=== PATIENT | male | born 1965 | race Caucasian/White ===

== ENCOUNTER 2020-04-23 17:19 | Inpatient (IN) ==
[2020-04-23] MEDS ORDERED: OPTIRAY 320 125ml IV PRN (17:21)
[2020-04-23] MEDS ORDERED: THIAMINE HCL 200 MG in SODIUM CHLORIDE 0.9% 50 ML IV STA (17:26)
[2020-04-23] MEDS ORDERED: LABETALOL HCL IV 5 MG/ML 20ML IV STA (17:36)
--- NOTE | 2020-04-23 17:36 | CT Scan Report ---
HEAD CT NONCONTRAST CT DOSE: 1631.81 mGy.cm HISTORY: Stroke symptoms. Stroke evaluation TECHNIQUE: Multiaxial CT images of the head were performed without the use of intravenous contrast. A utomated exposure control was utilized for this study. A dose lowering technique was utilized adheri ng to the principles of ALARA. Comparison: Head CT 03/16/2020. Findings: Decrease in size in the maxillary sinus retention cysts. The mastoid air cells are clear. T he calvarium and skull base are intact. There is no mass, midline shift, acute infarct. The left thal amic hemorrhage has essentially resolved in the interval. There is a focal hypodensity at this locati on measuring 3 cm likely representing expected evolution of the subacute to chronic infarct. No new a reas of intracranial hemorrhage identified. Impression: 1. No acute infarct. 2. The left thalamic hemorrhage has essentially resolved in the interval. Focal hypodensity at this l ocation is consistent with expected evolution of the subacute to chronic infarct. ACT 112: Negative or not required by law. Electronically signed by: Tacos Garnica M.D. 04/23/2020 5:34 PM
--- NOTE | 2020-04-23 17:46 | CT Scan Report ---
HEAD & NECK CTA HISTORY: Stroke symptoms. Stroke evaluation TECHNIQUE: Multiaxial CT images of the head were performed following the intravenous administration o f contrast to evaluate the major cerebral vessels. Multiaxial CT images of the neck were also perform ed following the intravenous administration of contrast to evaluate the major cervical vessels. Maxim um intensity projection images were also obtained. A dose lowering technique was utilized adhering to the principles of ALARA. COMPARISON: Head CT 03/16/2020. FINDINGS: Visualized intracranial internal carotid arteries, distal vertebral arteries, and basilar artery are widely patent. There is no significant stenosis, occlusion, or aneurysm seen within the bilateral RADHA s, MCAs, or pediatric oncology nurse. The major dural venous sinuses are widely patent. The aortic arch and proximal great vessels are widely patent. There is no significant stenosis, occ lusion, or dissection identified within the bilateral common carotid, internal carotid, or vertebral arteries. IMPRESSION: 1. No significant stenosis, occlusion, or aneurysm within the [place]. 2. No significant stenosis, occlusion, or dissection identified within the carotid or vertebral arter ies. ACT 112: Negative or not required by law. Electronically signed by: Tacos Garnica M.D. 04/23/2020 5:45 PM
--- NOTE | 2020-04-23 17:46 | CT Scan Report ---
HEAD & NECK CTA HISTORY: Stroke symptoms. Stroke evaluation TECHNIQUE: Multiaxial CT images of the head were performed following the intravenous administration o f contrast to evaluate the major cerebral vessels. Multiaxial CT images of the neck were also perform ed following the intravenous administration of contrast to evaluate the major cervical vessels. Maxim um intensity projection images were also obtained. A dose lowering technique was utilized adhering to the principles of ALARA. COMPARISON: Head CT 03/16/2020. FINDINGS: Visualized intracranial internal carotid arteries, distal vertebral arteries, and basilar artery are widely patent. There is no significant stenosis, occlusion, or aneurysm seen within the bilateral RADHA s, MCAs, or windows desktop support. The major dural venous sinuses are widely patent. The aortic arch and proximal great vessels are widely patent. There is no significant stenosis, occ lusion, or dissection identified within the bilateral common carotid, internal carotid, or vertebral arteries. IMPRESSION: 1. No significant stenosis, occlusion, or aneurysm within the [place]. 2. No significant stenosis, occlusion, or dissection identified within the carotid or vertebral arter ies. ACT 112: Negative or not required by law. Electronically signed by: Tacos Garnica M.D. 04/23/2020 5:45 PM
--- NOTE | 2020-04-23 17:52 | Emergency Department Note ---
Impression & Plan TIA (transient ischemic attack), Aphasia, Heart murmur ED Provider Note NAME: GERSON GUZMAN AGE: 54 SEX: M : 1965 ARRIVES VIA: Ambulance INFORMANT: Patient, ED PROVIDER(S): Aayush Gomez DO CHIEF COMPLAINT: Right-sided weakness HPI: The patient is a 54-year-old male who presented to the emergency department by ambulance for a possible stroke alert. The patient has a history of a recent hemorrhagic CVA. The patient presented to our emergency department initially on March 19 and was diagnosed with a hemorrhagic left-sided CVA. He was transferred to [facility]. He was at [facility] for inpatient rehab until yesterday. The patient went home yesterday and was feeling well. His last known well time was at 1530 today when he went to lie down for a nap. His found him this evening having significant difficulty using his right arm as well as slurred speech and inappropriate words. The patient has a history of alcoholism in the past. But he is not had any alcohol recently. He states that when he was at [facility] he was also diagnosed with hypertension and was started on medications for hypertension. He states that he has been compliant with his outpatient medication regimen. The patient denies having any headaches. He is had no recent falls. He denies having any nausea or vomiting. He denies having any chest pain or difficulty breathing at this time. He states his symptoms are significantly improved. ROS: See above HPI for pertinent positives & negatives. A total of 10 systems reviewed and were otherwise negative. PAST MEDICAL HISTORY: See Below PAST SURGICAL HISTORY: See Below FAMILY HISTORY: See Below SOCIAL HISTORY: See Below HOME MEDICATIONS: See Below ALLERGIES: See Below VITALS: See Below PHYSICAL EXAMINATION: GENERAL: The patient is awake and alert. He is somewhat anxious appearing but overall comfortable. EYES: The conjunctivae are clear. The pupils are round and reactive. EARS, NOSE, MOUTH AND THROAT: The nose is without any evidence of any deformity. Mucous membranes are moist. NECK: The neck is nontender and supple. RESPIRATORY: Normal respiratory effort is noted there is no evidence of wheezing rhonchi or rales CARDIOVASCULAR: Regular rate and rhythm was noted to auscultation. There is a systolic murmur appreciated. GASTROINTESTINAL: The abdomen is soft. Abdomen is nontender. MUSCULOSKELETAL/EXTREMITIES: There is no evidence of gross deformity full range of motion is noted in the hips and shoulders. SKIN: There is no obvious evidence of any rash. Trace pedal edema was noted bilaterally. NEUROLOGIC: The patient is awake and alert. He is oriented to person place and situation. He does have some word finding difficulty. Words are appropriate at this time. He does have a slight right facial droop involving the right corner of the mouth. Extraocular muscles are intact. 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 He is diminished with the right hand mail truck driver greater than the left. Patient is able to hold each leg off of the bed for greater than 5 seconds. MEDICAL DECISION MAKING: The patient is a 54-year-old male who presented to the emergency department for an evaluation of possible stroke. The patient had a last known well time of 1530 when he laid down to take a nap. When he awoke he was having difficulty speaking. The patient has a history of a recent hemorrhagic CVA at the end of February. He was discharged from inpatient rehab yesterday. The patient was significantly improved when he arrived at the emergency department. His significant other presented to the emergency department to be with him and states that he is at his baseline at this time. I discussed the patient's laboratory and radiographic studies with him. I also discussed this case with the on-call [facility] hospitalist group. They have agreed to evaluate the patient in the emergency department for further management and disposition. He was treated with IV antihypertensive in the emergency department. Triage Nursing notes reviewed. Prior medical records reviewed Vital Signs: reviewed and remarkable for elevated blood pressure. Differential diagnosis: Infection, dehydration, metabolic abnormality, hypo/hyperglycemia, electrolyte disturbance, anemia, hypoxia, cardiac sources, intracerebral event, toxicologic, neurologic, as well as other pathologies. ER treatment provided: See below Diagnostics interpreted by me: ECG: EKG was obtained in the emergency department. My interpretation is normal sinus rhythm at 78 bpm. There was high lateral ST depressions noted. No PVCs were noted. This was compared to a tracing from March 16, 2020. No significant changes were noted. Cardiac Monitoring: An order was placed for continuous cardiac monitoring. The monitor shows a rate of 88 with sinus rhythm. Laboratory studies: As stated above and show below. 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: No Beliefs That Will Affect Care: None Current Living Situation: Spouse Feels Safe at Home: Yes Safety Concerns: Feels Safe At This Time Smoking Status: Never smoker Hx Alcohol Use: Yes Alcohol type: beer Hx Substance Use: No Allergies Allergies Allergy/AdvReac Type Severity Reaction Status Date / Time No Known Allergies Allergy Verified 04/23/20 18:12 Home Meds Home Medications Medication Instructions Recorded Confirmed amlodipine 10 mg PO DAILY 04/23/20 04/23/20 atorvastatin 40 mg PO DAILY 04/23/20 04/23/20 carvedilol 25 mg PO DAILY 04/23/20 04/23/20 folic acid 1 mg PO DAILY 04/23/20 04/23/20 loratadine 10 mg PO DAILY 04/23/20 04/23/20 thiamine HCl (vitamin B1) 100 mg PO DAILY 04/23/20 04/23/20 Results & Data (ED) Vital Signs Vital Signs - 24 hr 04/23/20 17:24 04/23/20 17:34 04/23/20 17:47 Temperature 36.8 C Temperature Source Oral Pulse Rate 83 82 82 Pulse Rate [Apical] Pulse Rate from SpO2 Sensor 83 83 Pulse Rhythm Regular Pulse Strength Normal Respiratory Rate 20 Respiratory Effort / Characteristics Non-Labored Spontaneous Respiratory Depth Normal Respiratory Pattern Regular Blood Pressure 215/111 H 215/111 H Blood Pressure [Right Arm] Blood Pressure Mean 145 168 Blood Pressure Mean [Right Arm] Pulse Oximetry 96 96 95 Oxygen Delivery Method Room Air Sepsis Recent Fever Within 48 Hours No Sepsis Action Taken by Nursing No Action Required 04/23/20 17:57 04/23/20 18:00 04/23/20 18:01 Temperature Temperature Source Pulse Rate 77 76 75 Pulse Rate [Apical] Pulse Rate from SpO2 Sensor 78 75 75 Pulse Rhythm Pulse Strength Respiratory Rate Respiratory Effort / Characteristics Respiratory Depth Respiratory Pattern Blood Pressure 185/87 H 161/84 H Blood Pressure [Right Arm] Blood Pressure Mean 103 90 Blood Pressure Mean [Right Arm] Pulse Oximetry 97 96 96 Oxygen Delivery Method Sepsis Recent Fever Within 48 Hours Sepsis Action Taken by Nursing 04/23/20 18:15 04/23/20 18:19 04/23/20 18:30 Temperature Temperature Source Pulse Rate 78 77 Pulse Rate [Apical] Pulse Rate from SpO2 Sensor 77 76 Pulse Rhythm Pulse Strength Respiratory Rate Respiratory Effort / Characteristics Respiratory Depth Respiratory Pattern Blood Pressure 152/76 H Blood Pressure [Right Arm] Blood Pressure Mean 95 Blood Pressure Mean [Right Arm] Pulse Oximetry 95 96 Oxygen Delivery Method Room Air Room Air Room Air Sepsis Recent Fever Within 48 Hours Sepsis Action Taken by Nursing 04/23/20 18:31 04/23/20 18:46 04/23/20 20:32 Temperature Temperature Source Pulse Rate 75 73 Pulse Rate [Apical] 78 Pulse Rate from SpO2 Sensor 75 73 Pulse Rhythm Pulse Strength Respiratory Rate 18 Respiratory Effort / Characteristics Non-Labored Respiratory Depth Normal Respiratory Pattern Blood Pressure 180/83 H 169/84 H Blood Pressure [Right Arm] 156/76 H Blood Pressure Mean 103 119 Blood Pressure Mean [Right Arm] 102 Pulse Oximetry 97 97 98 Oxygen Delivery Method Room Air Room Air Room Air Sepsis Recent Fever Within 48 Hours Sepsis Action Taken by Prison Medications Current Medication List: was personally reviewed by me Laboratory Data Attestation: I reviewed the patient's lab results. Result diagrams: 04/23/20 17:41 04/23/20 17:41 Lab Results 04/23/20 04/23/20 04/23/20 Range/Units 17:41 17:41 17:41 WBC 6.92 (4.8-10.8) K/uL RBC 4.39 L (4.7-6.1) M/uL Hgb 14.6 (14.0-18.0) g/dL Hct 41.6 L (42-52) % MCV 94.8 (80-100) fL MCH 33.3 (25-34) pg MCHC 35.1 (32-36) g/dL RDW Std Deviation 42.8 (36.4-46.3) fL RDW Coeff of Harjinder 12.4 (11.5-14.5) % Plt Count 155 (130-400) K/uL MPV 11.7 H (7.4-10.4) fL Immature Gran % (Auto) 0.1 % Neut % (Auto) 50.8 % Lymph % (Auto) 36.0 % [place] % (Auto) 9.5 % Eos % (Auto) 2.9 % Baso % (Auto) 0.7 % Neut # (Auto) 3.51 (1.4-6.5) K/uL Lymph # (Auto) 2.49 (1.2-3.4) K/uL [place] # (Auto) 0.66 H (0.11-0.59) K/uL Eos # (Auto) 0.20 (0-0.5) K/uL Baso # (Auto) 0.05 (0-0.2) K/uL Immature Gran # (Auto) 0.01 (0.00-0.02) K/uL PT 12.2 H (9.0-12.0) Seconds INR 1.2 H (0.9-1.1) APTT 33.2 H (21.0-31.0) Seconds PTT Ratio 1.2 Sodium (136-145) mmol/L Potassium (3.5-5.1) mmol/L Chloride (98-107) mmol/L Carbon Dioxide (21-32) mmol/L Anion Gap (3-11) BUN (7-18) mg/dl Creatinine (0.6-1.4) mg/dl Est Cr Clr Drug Dosing ml/min Est GFR ( Amer) Est GFR (Non-Af Amer) BUN/Creatinine Ratio (10-20) Glucose (70-99) mg/dl Calcium (8.5-10.1) mg/dl Magnesium (1.8-2.4) mg/dl Total Bilirubin (0.2-1) mg/dl AST (15-37) U/L ALT (12-78) U/L Alkaline Phosphatase (45-117) U/L Troponin I (0-0.045) ng/ml Total Protein (6.4-8.2) gm/dl Albumin (3.4-5.0) gm/dl Globulin (2.5-4.0) gm/dl Albumin/Globulin Ratio (0.9-2) Prolactin ng/ml Ethyl Alcohol mg/dL (0-3) mg/dl Blood Type B Positive Antibody Screen NEGATIVE 04/23/20 04/23/20 04/23/20 Range/Units 17:41 17:41 17:41 WBC (4.8-10.8) K/uL RBC (4.7-6.1) M/uL Hgb (14.0-18.0) g/dL Hct (42-52) % MCV (80-100) fL MCH (25-34) pg MCHC (32-36) g/dL RDW Std Deviation (36.4-46.3) fL RDW Coeff of Harjinder (11.5-14.5) % Plt Count (130-400) K/uL MPV (7.4-10.4) fL Immature Gran % (Auto) % Neut % (Auto) % Lymph % (Auto) % [place] % (Auto) % Eos % (Auto) % Baso % (Auto) % Neut # (Auto) (1.4-6.5) K/uL Lymph # (Auto) (1.2-3.4) K/uL [place] # (Auto) (0.11-0.59) K/uL Eos # (Auto) (0-0.5) K/uL Baso # (Auto) (0-0.2) K/uL Immature Gran # (Auto) (0.00-0.02) K/uL PT (9.0-12.0) Seconds INR (0.9-1.1) APTT (21.0-31.0) Seconds PTT Ratio Sodium 136 (136-145) mmol/L Potassium 4.0 (3.5-5.1) mmol/L Chloride 102 (98-107) mmol/L Carbon Dioxide 26 (21-32) mmol/L Anion Gap 8.0 (3-11) BUN 13 (7-18) mg/dl Creatinine 1.06 (0.6-1.4) mg/dl Est Cr Clr Drug Dosing 114.8 ml/min Est GFR ( Amer) 92.4 Est GFR (Non-Af Amer) 79.7 BUN/Creatinine Ratio 12.0 (10-20) Glucose 94 (70-99) mg/dl Calcium 9.0 (8.5-10.1) mg/dl Magnesium 2.1 (1.8-2.4) mg/dl Total Bilirubin 0.5 (0.2-1) mg/dl AST 25 (15-37) U/L ALT 49 (12-78) U/L Alkaline Phosphatase 98 (45-117) U/L Troponin I < 0.015 (0-0.045) ng/ml Total Protein 8.0 (6.4-8.2) gm/dl Albumin 3.5 (3.4-5.0) gm/dl Globulin 4.5 H (2.5-4.0) gm/dl Albumin/Globulin Ratio 0.8 L (0.9-2) Prolactin 8.20 ng/ml Ethyl Alcohol mg/dL < 3.0 (0-3) mg/dl Blood Type Antibody Screen Administered Medications Ioversol (Optiray 320 125ml) 119 ml IV ONCE PRN PRN Reason: Interaction Checking Stop: 04/27/20 17:20 Last Admin: 04/23/20 17:22 Dose: 119 ml Documented by: [id number] Discontinued Medications Thiamine HCl 200 mg/ Sodium (Chloride) 52 mls @ 208 mls/hr IV NOW STA Stop: 04/23/20 17:40 Last Infusion: 04/23/20 18:17 Dose: 0 mls/hr Documented by: [id number] Admin: 04/23/20 17:54 Dose: 208 mls/hr Documented by: [id number] Labetalol HCl (Normodyne) 10 mg IV NOW STA Stop: 04/23/20 17:37 Last Admin: 04/23/20 17:49 Dose: 10 mg Documented by: [id number] Cosigned by: [id number] Imaging Data Radiologist's Impression: HEAD CT NONCONTRAST CT DOSE: 1631.81 mGy.cm HISTORY: Stroke symptoms. Stroke evaluation TECHNIQUE: Multiaxial CT images of the head were performed without the use of intravenous contrast. Automated exposure control was utilized for this study. A dose lowering technique was utilized adhering to the principles of ALARA. Comparison: Head CT 03/16/2020. Findings: Decrease in size in the maxillary sinus retention cysts. The mastoid air cells are clear. The calvarium and skull base are intact. There is no mass, midline shift, acute infarct. The left thalamic hemorrhage has essentially resolved in the interval. There is a focal hypodensity at this location measuring 3 cm likely representing expected evolution of the subacute to chronic infarct. No new areas of intracranial hemorrhage identified. Impression: 1. No acute infarct. 2. The left thalamic hemorrhage has essentially resolved in the interval. Focal hypodensity at this location is consistent with expected evolution of the subacute to chronic infarct. ACT 112: Negative or not required by law. Electronically signed by: Tacos Garnica M.D. 04/23/2020 5:34 PM Dictated: 04/23/201730 Transcribed: 04/23/201730 HEAD & NECK CTA HISTORY: Stroke symptoms. Stroke evaluation TECHNIQUE: Multiaxial CT images of the head were performed following the intravenous administration of contrast to evaluate the major cerebral vessels. Multiaxial CT images of the neck were also performed following the intravenous administration of contrast to evaluate the major cervical vessels. Maximum intensity projection images were also obtained. A dose lowering technique was utilized adhering to the principles of ALARA. COMPARISON: Head CT 03/16/2020. FINDINGS: Visualized intracranial internal carotid arteries, distal vertebral arteries, and basilar artery are widely patent. There is no significant stenosis, occlusion, or aneurysm seen within the bilateral ACAs, MCAs, or speech pathology assistant. The major dural venous sinuses are widely patent. The aortic arch and proximal great vessels are widely patent. There is no significant stenosis, occlusion, or dissection identified within the bilateral common carotid, internal carotid, or vertebral arteries. IMPRESSION: 1. No significant stenosis, occlusion, or aneurysm within the [place]. 2. No significant stenosis, occlusion, or dissection identified within the carotid or vertebral arteries. ACT 112: Negative or not required by law. Electronically signed by: Tacos Garnica M.D. 04/23/2020 5:45 PM Dictated: 04/23/201734 Transcribed: 04/23/201734 XR chest 1V portable HISTORY: Stroke symptoms. COMPARISON: Chest 03/16/2020. FINDINGS: There are low lung volumes. No pleural effusions. No pneumothorax. The heart remains mildly enlarged. The lungs are clear. No evidence for pulmonary edema. Mildly tortuous thoracic aorta. IMPRESSION: Stable mild cardiomegaly. ACT 112: Negative or not required by law. Electronically signed by: Tacos Garnica M.D. 04/23/2020 7:12 PM Dictated: 04/23/201910 Transcribed: 04/23/201910 Blood Pressure Blood Pressure Findings: Elevated blood pressure Blood Pressure Disposition: further management by hospitalist Discharge Plan Visit Data *Final* Discharge Date/Time: 04/23/20 21:31 Chief Complaint: Stroke Alert Stated Complaint: STROKE ALERT ED Provider: Jason,Aayush R Discharge Problem: TIA (transient ischemic attack), Aphasia, Heart murmur Patient Disposition: Admitted As Inpatient Condition: Good Discharge Instructions Interventions: ED Discharge Assessment Last Done: 04/23/20 21:31
[2020-04-23 17:59] LABS: Basophils # (auto) 0.05 K/uL (0-0.2); Basophils % (auto) 0.7 %; Eosinophils % (auto) 2.9 %; Hematocrit (blood only) 41.6 % (42-52); Hemoglobin 14.6 g/dL (14.0-18.0); Immature Granulocytes # (auto) 0.01 K/uL (0.00-0.02); Immature Granulocytes % (auto) 0.1 %; Lymphocytes # (auto) 2.49 K/uL (1.2-3.4); Mean Corpuscular Hemoglobin 33.3 pg (25-34); Mean Corpuscular Hgb Conc 35.1 g/dL (32-36); Mean Corpuscular Volume 94.8 fL (80-100); Mean Platelet Volume 11.7 fL (7.4-10.4); Monocytes # (auto) 0.66 K/uL (0.11-0.59); Monocytes % (auto) 9.5 %; Neutrophils # (auto) 3.51 K/uL (1.4-6.5); Neutrophils % (auto) 50.8 %; Platelet Count 155 K/uL (130-400); RDW Coefficient of Variation 12.4 % (11.5-14.5); RDW Standard Deviation 42.8 fL (36.4-46.3); Red Blood Count 4.39 M/uL (4.7-6.1); White Blood Count 6.92 K/uL (4.8-10.8)
[2020-04-23 18:09] LABS: INR 1.2 (0.9-1.1); Partial Thromboplastin Ratio 1.2; Partial Thromboplastin Time 33.2 Seconds (21.0-31.0); Prothrombin Time 12.2 Seconds (9.0-12.0)
[2020-04-23 18:37] LABS: Alanine Aminotransferase 49 U/L (12-78); Albumin Level 3.5 gm/dl (3.4-5.0); Aspartate Aminotransferase 25 U/L (15-37); Blood Urea Nitrogen 13 mg/dl (7-18); Carbon Dioxide 26 mmol/L (21-32); Chloride 102 mmol/L (98-107); Creatinine Clr Calc Pharmacy 114.8 ml/min; Est GFR (African American) 92.4; Est GFR (Non-African American) 79.7; Glucose 94 mg/dl (70-99); Magnesium 2.1 mg/dl (1.8-2.4); Sodium 136 mmol/L (136-145)
[2020-04-23 18:41] LABS: Albumin Globulin Ratio 0.8 (0.9-2); Alkaline Phosphatase 98 U/L (45-117); Bilirubin,Total 0.5 mg/dl (0.2-1); Globulin 4.5 gm/dl (2.5-4.0); Troponin I < 0.015 ng/ml (0-0.045)
--- NOTE | 2020-04-23 19:13 | XRay Report ---
XR chest 1V portable HISTORY: Stroke symptoms. COMPARISON: Chest 03/16/2020. FINDINGS: There are low lung volumes. No pleural effusions. No pneumothorax. The heart remains mildly enlarged. The lungs are clear. No evidence for pulmonary edema. Mildly tortuous thoracic aorta. IMPRESSION: Stable mild cardiomegaly. ACT 112: Negative or not required by law. Electronically signed by: Tacos Garnica M.D. 04/23/2020 7:12 PM
--- NOTE | 2020-04-23 21:42 | History & Physical Report ---
Date of Service April 23, 2020 Assessment & Plan (1) TIA (transient ischemic attack): 54 yo M with PMH L Hemorrhagic CVA 5 weeks ago, presenting to ED today with symptoms of TIA. 1) TIA - CTA Head and negative for stenosis, occlusion or aneurysm - Given first stroke 5 weeks ago, patient is still high risk for repeat stroke within 3 months of initial event - most likely TIA given resolution within ~1 hour of symptom onset without intervention - MRI brain wo con ordered - Neuro consult; may benefit from addition of aspirin therapy - BP 215/111 on arrival to ED; reduced significantly to 145/70 after 10 mg IV labetalol in ED. - holding carvedilol 25 mg BID until pressures stabilize with goal of no more than 15% decrease over 24 hours (182/94), can add back if systolic >220 or diastolic >120 [pt had one dose of carvedilol AM of 04/23, did not receive evening dose] 2) Hx Hemorrhagic Stroke - continuing home 40 mg Atorvastatin - Amlodipine 10 mg held - will request records from [facility] from last stroke admission. A1c and lipid panel unlikely to have changed much in 5 weeks; follow up outpatient. - If cardiac echo not performed at [facility] at last admit, will repeat here given murmur on exam. 3) Hx Alcoholism - continue home daily folic acid and thiamine supplementation DVT ppx: SCDs FEN/GI: heart healthy diet, low sodium diet Code Status: Full Code Dispo: (2) Aphasia: (3) Heart murmur: History of Present Illness 54-year-old male with a past medical history significant for hemorrhagic left- sided CVA 5 weeks ago at [facility]. He presented to the emergency department via ambulance earlier this afternoon after noticing trouble speaking and slurred speech. Last known well time was 3:30 PM prior to him laying down for a nap he woke up at 430 and he and his noticed he was having trouble saying the appropriate words and had slight slurring of speech. She called the ambulance and was brought to the emergency department. Patient says that he felt like his speech was improving by the time he got into the ambulance it was almost entirely back to baseline by the time he got to the hospital was seen by the physician. Denies any chest pain, shortness of breath, nausea, vomiting during this entire episode. He states he does have some numbness and tingling in the right side of his body that is remnant from the previous stroke but does not note any changes in that today. Pain well [facility] where he was able to take all of the new medications he had been placed on after his previous stroke. Is any changes in vision blurring of vision headaches weakness or instability episode. Not currently on any blood thinners and taking his medications as prescribed. History significant for NH, stroke, hypertension, and diabetes in mother, father, and sister. No history of surgeries or allergies to medications. Primary Care Provider: NO PCP Allergies Allergy/AdvReac Type Severity Reaction Status Date / Time No Known Allergies Allergy Verified 04/23/20 18:12 Home Medications Home Medications Medication Instructions Recorded Confirmed Type amlodipine 10 mg PO DAILY 04/23/20 04/23/20 History atorvastatin 40 mg PO DAILY 04/23/20 04/23/20 History carvedilol 25 mg PO DAILY 04/23/20 04/23/20 History folic acid 1 mg PO DAILY 04/23/20 04/23/20 History loratadine 10 mg PO DAILY 04/23/20 04/23/20 History thiamine HCl (vitamin B1) 100 mg PO DAILY 04/23/20 04/23/20 History Past Med/Surg History Medical History Hemorrhagic cerebrovascular accident (CVA) Hypertension Family History (Updated 04/23/20 @ 22:06 by Fatemeh Abernathy MD) Father Myocardial infarction Mother Myocardial infarction Sister Hypertension Myocardial infarction Stroke Diabetes Social History Preferred Language: Setswana Communication Ability: Effective 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 Beliefs That Will Affect Care: None Current Living Situation: Spouse Feels Safe at Home: Yes Safety Concerns: Feels Safe At This Time Smoking Status: Never smoker Hx Alcohol Use: Yes Alcohol type: beer Hx Substance Use: No Review of Systems Constitutional: no fever, no chills, no body aches and no fatigue Respiratory: no cough and no dyspnea Cardiovascular: no chest pain, no dyspnea and no edema Gastrointestinal: no abdominal pain, no nausea, no vomiting, no constipation and no diarrhea/loose stools Neurologic: + tingling, + numbness and + abnormal speech; no unsteadiness, no falls, no localized weakness, no lack of coordination, no tremor(s), no seizure- like activity, no dizziness and no headache(s) Physical Exam Physical Exam: Constitutional: obese, in no apparent distress, sitting comfortably in bed. HENT: no facial droop Eyes: EOMI, pupils equal and reactive bilaterally, no scleral icterus Cardiac: RRR, 3/6 systolic ejection murmur heard best at apex, no gallops or rubs. Normal S1, S2 Pulm: CTA BL, no wheezes, rhonchi, crackles or rubs, moving air well throughout both lungs Abd: soft, nontender, nondistended, normal bowel sounds, no rebound or guarding, bruising across lower abdomen from SQ heparin Extremities: 2+ peripheral pulses, no edema Neuro: no focal deficits, moving all 4 limbs, A&Ox3, strength 5/5 at ankles bilaterally. Able to extend and flex lower extremity against resistance bilaterally. Flexion of upper extremities against resistance equal and strong, extension of right extremity weaker than left against resistance. Results & Data Results & Data ([facility]) Vital Signs (Past 12 Hours) Vital Signs Temp Pulse Pulse Resp BP BP Pulse Ox 04/23/20 21:31 84 18 145/79 H 98 04/23/20 20:32 78 18 156/76 H 98 04/23/20 18:46 73 169/84 H 97 04/23/20 18:31 75 180/83 H 97 04/23/20 18:30 77 96 04/23/20 18:19 78 152/76 H 95 04/23/20 18:01 75 161/84 H 96 04/23/20 18:00 76 96 04/23/20 17:57 77 185/87 H 97 04/23/20 17:47 82 95 04/23/20 17:34 82 215/111 H 96 04/23/20 17:24 36.8 C 83 20 215/111 H 96 Vital Signs Temp Pulse Resp BP Pulse Ox 36.8 C 83 20 215/111 H 96 04/23/20 17:24 04/23/20 17:24 04/23/20 17:24 04/23/20 17:24 04/23/20 17:24 Laboratory Results WBC 6.92 K/uL (4.8-10.8) 04/23/20 17:41 RBC 4.39 M/uL (4.7-6.1) L 04/23/20 17:41 Hgb 14.6 g/dL (14.0-18.0) 04/23/20 17:41 Hct 41.6 % (42-52) L 04/23/20 17:41 MCV 94.8 fL (80-100) 04/23/20 17:41 MCH 33.3 pg (25-34) 04/23/20 17:41 MCHC 35.1 g/dL (32-36) 04/23/20 17:41 RDW Std Deviation 42.8 fL (36.4-46.3) 04/23/20 17:41 RDW Coeff of Harjinder 12.4 % (11.5-14.5) 04/23/20 17:41 Plt Count 155 K/uL (130-400) 04/23/20 17:41 MPV 11.7 fL (7.4-10.4) H 04/23/20 17:41 Immature Gran % (Auto) 0.1 % 04/23/20 17:41 Neut % (Auto) 50.8 % 04/23/20 17:41 Lymph % (Auto) 36.0 % 04/23/20 17:41 Emmons % (Auto) 9.5 % 04/23/20 17:41 Eos % (Auto) 2.9 % 04/23/20 17:41 Baso % (Auto) 0.7 % 04/23/20 17:41 Neut # (Auto) 3.51 K/uL (1.4-6.5) 04/23/20 17:41 Lymph # (Auto) 2.49 K/uL (1.2-3.4) 04/23/20 17:41 Emmons # (Auto) 0.66 K/uL (0.11-0.59) H 04/23/20 17:41 Eos # (Auto) 0.20 K/uL (0-0.5) 04/23/20 17:41 Baso # (Auto) 0.05 K/uL (0-0.2) 04/23/20 17:41 Immature Gran # (Auto) 0.01 K/uL (0.00-0.02) 04/23/20 17:41 PT 12.2 Seconds (9.0-12.0) H 04/23/20 17:41 INR 1.2 (0.9-1.1) H 04/23/20 17:41 APTT 33.2 Seconds (21.0-31.0) H 04/23/20 17:41 PTT Ratio 1.2 04/23/20 17:41 Sodium 136 mmol/L (136-145) 04/23/20 17:41 Potassium 4.0 mmol/L (3.5-5.1) 04/23/20 17:41 Chloride 102 mmol/L (98-107) 04/23/20 17:41 Carbon Dioxide 26 mmol/L (21-32) 04/23/20 17:41 Anion Gap 8.0 (3-11) 04/23/20 17:41 BUN 13 mg/dl (7-18) 04/23/20 17:41 Creatinine 1.06 mg/dl (0.6-1.4) 04/23/20 17:41 Est Cr Clr Drug Dosing 114.8 ml/min 04/23/20 17:41 Est GFR ( Amer) 92.4 04/23/20 17:41 Est GFR (Non-Af Amer) 79.7 04/23/20 17:41 BUN/Creatinine Ratio 12.0 (10-20) 04/23/20 17:41 Glucose 94 mg/dl (70-99) 04/23/20 17:41 Calcium 9.0 mg/dl (8.5-10.1) 04/23/20 17:41 Magnesium 2.1 mg/dl (1.8-2.4) 04/23/20 17:41 Total Bilirubin 0.5 mg/dl (0.2-1) 04/23/20 17:41 AST 25 U/L (15-37) 04/23/20 17:41 ALT 49 U/L (12-78) 04/23/20 17:41 Alkaline Phosphatase 98 U/L (45-117) 04/23/20 17:41 Troponin I < 0.015 ng/ml (0-0.045) 04/23/20 17:41 Total Protein 8.0 gm/dl (6.4-8.2) 04/23/20 17:41 Albumin 3.5 gm/dl (3.4-5.0) 06/28/20 17:41 Globulin 4.5 gm/dl (2.5-4.0) H 04/23/20 17:41 Albumin/Globulin Ratio 0.8 (0.9-2) L 04/23/20 17:41 Prolactin 8.20 ng/ml 04/23/20 17:41 Ethyl Alcohol mg/dL < 3.0 mg/dl (0-3) 04/23/20 17:41 Blood Type B Positive 04/23/20 17:41 Antibody Screen NEGATIVE 04/23/20 17:41 Supervising Physician Co-Signing Physician Notes Patient seen and examined, chart reviewed, case discussed with Dr. Abernathy and I agree with her assessment and plan as documented above. Briefly, patient is a 54yo C male with history of newly diagnosed HTN, thalamic hemorrhagic CVA 5 weeks ago for which he was seen at [facility] and subsequently transferred to [facility]. Patient returns today with brief episode of aphasia noted today around 16:30 - states that he knew what he wanted to say but was unable to say the correct words. reports nonsensical words. Otherwise, patient denies CHOUDHARY/visual changes/worsening of numbness/tingling or weakness. Of note, he still has some residual deficit of the right side from his prior CVA - numbness, mild weakness subjective. He states that his aphasia improved en route to the hospital. He currently feels completely back to baseline. His feels that he is back to normal as well. On arrival to the ER he was hypertensive, administered IV Labetalol with improvement Skin -intact, no rash, extensive bruising on anterior lower abdomen HEENT - NC/AT, PERRL, MMM, Neck supple Heart - +S1/S2, regular, 3/6 TIARA across precordium Lungs - CTA Abd - +BS, soft, NT/ND Ext - No edema Neuro - diminished sensation RUE Labs and images reviewed. CT head with resolution of thalamic hemorrhage, CTA unremarkable Assessment/Plan - Dysarthria most likely secondary to TIA vs CVA -Admit to medical floor -Obtain MRI -Obtain records from [place] - if no record of AIC, lipids or echo will obtain these during this hospital stay -Neurology consultation per protocol appreciated -Initiate ASA 81mg po daily -Continue high dose statin -Remainder of plan as above Resident Activity Tracking Resident Involvement: Resident Care Provided Care Provided: Adult [facility]
[2020-04-23] MEDS ORDERED: ALUMINUM/MAGNESIUM SUSP 30 ML UDC PO PRN (22:05)
[2020-04-23] MEDS ORDERED: PHARMACIST DISCHARGE MED REC CONSULT PRN (22:05)
[2020-04-23] MEDS ORDERED: MAGNESIUM HYDROXIDE SUSP 30 ML UDC PO PRN (22:05)
[2020-04-23] MEDS ORDERED: POLYETHYLENE (MIRALAX) 17 GM PACK PO PRN (22:05)
[2020-04-23] MEDS ORDERED: NITROGLYCERIN SL 0.4 MG/TAB TAB SL PRN (22:05)
[2020-04-23] MEDS ORDERED: ONDANSETRON INJ 2 MG/ML 2 ML VIAL IV PRN (22:05)
[2020-04-23] MEDS ORDERED: ACETAMINOPHEN 325 MG TAB PO PRN (22:05)
--- NOTE | 2020-04-23 23:22 | Billing Data ---
Date of Service April 23, 2020 Coding Level of Care Code 41543 OBS Care - Level 2
[2020-04-24 07:22] LABS: BUN Creatinine Ratio 12.2 (10-20); Calcium 9.2 mg/dl (8.5-10.1); Creatinine Clr Calc Pharmacy 121.7 ml/min; Est GFR (African American) 109.7; Est GFR (Non-African American) 94.6; Potassium 4.3 mmol/L (3.5-5.1)
--- NOTE | 2020-04-24 07:55 | Magnetic Resonance Report ---
MRI OF THE BRAIN WITHOUT CONTRAST CLINICAL HISTORY: stroke/TIA symptoms COMPARISON STUDY: Head CT and CTA of the head April 23, 2020. TECHNIQUE: Utilizing a 1.5 Gay magnet and dedicated coil, multiplanar, multiecho imaging of the bra in was performed without IV contrast. FINDINGS: There is no evidence for acute infarction. Note is made of a 3.1 cm T1 and T2 hyperintense focus with T2 hypointense rim within the left thalamus and posterior limb of the left internal capsul e which represents expected evolution of the hematoma shown on head CT of March 16, 2020. This is now s ubacute to chronic. No additional sites of hemorrhage are present. Ventricular system is unremarkable . The basilar cisterns are patent. There are no extra axial collections. Flow-voids for the major int racranial vessels are present. IMPRESSION: 1. No evidence for acute infarct. 2. Expected evolution of the subacute to chronic hematoma within the left thalamus and posterior limb of the left internal capsule since head CT of March 16, 2020. ACT 112: Negative or not required by law. Electronically signed by: Marcio Lopez M.D. 04/24/2020 7:53 AM
[2020-04-24] MEDS: FOLIC ACID 1 MG TAB PO SCH (08:41)
[2020-04-24] MEDS: ATORVASTATIN 40 MG TAB PO SCH (08:41)
[2020-04-24] MEDS: THIAMINE HCL 100 MG TAB PO SCH (08:41)
[2020-04-24] MEDS: ASPIRIN 81 MG ECTAB PO SCH (08:41)
[2020-04-24] MEDS: LORATADINE 10 MG TAB PO SCH (08:41)
[2020-04-24] MEDS ORDERED: AMLODIPINE BESYLATE 5 MG TAB PO SCH (09:00)
--- NOTE | 2020-04-24 09:21 | Electrocardiogram Report ---
Test Reason : Blood Pressure : / mmHG Vent. Rate : 078 BPM Atrial Rate : 078 BPM P-R Int : 208 ms QRS Dur : 090 ms QT Int : 400 ms P-R-T Axes : 032 035 079 degrees QTc Int : 456 ms Normal sinus rhythm Normal ECG When compared with ECG of 16-MAR-2020 06:10, ST depression in Lateral leads no longer present Confirmed by Marty Starr ([id number]) on 04/24/2020 9:20:56 AM Referred By: REFERRED SELF Confirmed By:Marty Starr
--- NOTE | 2020-04-24 09:39 | Neurology Consultation ---
Date of Consultation April 24, 2020 Assessment & Plan (1) TIA (transient ischemic attack): TIA occurring in the context of hypertensive urgency and recent hemorrhagic left thalamic infarct. No acute or progressive process on recent imaging. No significant vascular lesions on CT angiography of the head and neck. Episode probably triggered by hypertension and possibly impaired cerebrovascular autoregulation in context of recent hemorrhagic infarct occurring last month. Again, no acute process identified. Patient is clinically stable this morning and appears to be back to his baseline with continued mild weakness of the right hand related to his previous hemorrhagic stroke. I agree with the addition of daily low-dose aspirin to this patient's medication regimen. Continue with atorvastatin. Continue management of hypertension. He will likely need to restart antihypertensive therapy to avoid abnormal spikes in blood pressure that could be a factor. Again, his blood pressure was markedly elevated at the time of this most recent hospitalization and had been significantly elevated when he had presented with his left thalamic hemorrhage last month. No further immediate recommendations from a neurological perspective. History of Present Illness Reason for Consultation: TIA Requesting Physician: Katheirn Abrenathy MD Attending Physician: Mo Stephenson History of Present Illness The patient is a 54-year-old male who presented to the emergency department yesterday with a chief complaint of slurred speech and using inappropriate words with associated weakness of the right arm. Symptoms were noted by his spouse. He has a history of a left thalamic hypertensive hemorrhage occurring last month, on March 16, 2020, characterized by aphasia and right hemiparesis for which he was evaluated at [facility] and transferred to [facility] at that time. He had been at [facility] for 3 weeks and was discharged to home yesterday, prior to his current acute presentation. The patient symptoms had nearly resolved or return to baseline by the time he was admitted yesterday. He continues to have mild weakness of the right hand which she remarks is chronic and related to his hemorrhagic stroke. He does report that his weakness is markedly improved from his initial presentation in February. He denies headache, vertigo, or vision disturbance. He was notably hypertensive with a blood pressure of 215/111 at the time of his most recent presentation. His blood pressure this morning is markedly improved. Allergies Allergy/AdvReac Type Severity Reaction Status Date / Time No Known Allergies Allergy Verified 04/23/20 18:12 Home Medications Home Medications Medication Instructions Recorded Confirmed Type amlodipine 10 mg PO DAILY 04/23/20 04/23/20 History atorvastatin 40 mg PO DAILY 04/23/20 04/23/20 History carvedilol 25 mg PO DAILY 04/23/20 04/23/20 History folic acid 1 mg PO DAILY 04/23/20 04/23/20 History loratadine 10 mg PO DAILY 04/23/20 04/23/20 History thiamine HCl (vitamin B1) 100 mg PO DAILY 04/23/20 04/23/20 History Patient History Medical History Hemorrhagic cerebrovascular accident (CVA) Hypertension Family History Father Myocardial infarction Mother Myocardial infarction Sister Hypertension Myocardial infarction Stroke Diabetes Social History Preferred Language: Divehi Communication Ability: Effective Director Of Institutional Research Required: No Beliefs That Will Affect Care: None Current Living Situation: Spouse Feels Safe at Home: Yes Safety Concerns: Feels Safe At This Time Smoking Status: Never smoker Hx Alcohol Use: Yes Alcohol type: beer Hx Substance Use: No Review of Systems Constitutional: no fever and no chills Eyes: no blind spots and no diplopia Ear, Nose, Mouth, Throat: no tinnitus and no hearing loss Respiratory: no cough and no dyspnea Cardiovascular: no chest pain and no palpitations Gastrointestinal: no nausea and no vomiting Genitourinary: no dysuria and no urinary incontinence Musculoskeletal: no neck pain and no myalgia Integumentary: no rash and no lesions Neurologic: as per Subjective / HPI, + localized weakness and + abnormal speech; no headache(s), no confusion and no memory loss Psychiatric: no depression and no anxiety Hematologic / Lymphatic: no easy bleeding and no easy bruising Exam (Neuro) Constitutional: well developed and well nourished; no acute distress Eyes: normal visual benítez by confrontation, PERRL, normal accommodation and EOM intact bilaterally; no fundoscopic abnormality, no nystagmus and no papilledema Cardiovascular: Vessels: normal carotid upstroke; no carotid bruit Neurologic: Oriented to:: Person, Place and Time Memory: Short Term Intact and Remote Intact Attention: Span Intact and Concentration Intact Language: Naming Objects and Repeating Phrases Speech Fluency: negative Dysarthria Speech Aphasia: negative Aphasia Fund of Knowledge: Current Events, Past History and Vocabulary Cranial Nerves: Normal II (Visual benítez full to confrontation, visual acuity normal), III, IV, (Pupils equal round reactive to light and accommodation, eye movements normal), V (Facial sensation intact), VII (There is no facial droop or weakness), VIII (Hearing intact), IX, X (Palate elevates to midline), XI (Shoulder shrug intact) and XII (Tongue protrudes to midline) Motor Strength: Normal Lower Extremities and Pronator Drift Laterality: Right; negative Normal Upper Extremities (Mild weakness for the right upper extremity, 4 out of 5 with impairment of facility of fine finger movements and fix with arm roll on the right.) Motor Tone: Normal Lower Extremities and Normal Upper Extremities Muscle Bulk/Involuntary Movements: No Involuntary Movements; negative Muscle Atrophy Sensation: Light Touch Intact, Pain/Temperature Intact, Vibration Intact and Proprioception Intact Coordination: Normal, Finger-Nose Abnormal (Moderate dysmetria with [id number] on the right) and Heel-Pérez Abnormal (Very mild dysmetria with [id number] on the right); negative Limited Balance and Dysdiadochokinesia Deep Tendon Reflexes: Rt Triceps: 2+, Lt Triceps: 2+, Rt Biceps: 3+, Lt Biceps: 2+, Rt Brachioradialis: 3+, Lt Brachioradialis: 2+, Rt Patellar: 3+, Lt Patellar: 2+, Rt Ankle: 2+ and Lt Ankle: 2+ Special Tests: Babinski Present (Right plantar response upgoing) Gait: Hemiparetic (Very mild right hemiparetic gait pattern) Results & Data ([facility]) Vital Signs (Past 12 Hours) Vital Signs Temp Pulse Pulse Resp BP BP BP 04/24/20 07:20 36.6 C 69 19 132/64 04/24/20 03:22 36.3 C L 68 18 119/68 04/23/20 22:16 36.5 C 74 18 174/70 H 04/23/20 22:05 04/23/20 21:31 84 18 145/79 H Pulse Ox Pulse Ox 04/24/20 07:20 97 04/24/20 03:22 98 04/23/20 22:16 97 04/23/20 22:05 97 04/23/20 21:31 98 Laboratory Results WBC 6.92, hemoglobin 14.6, hematocrit 41.6, platelet count 155, sodium 141, potassium 4.3, BUN 11, creatinine 0.92, glucose [address] of the head completed yesterday revealed resolution of the previously identified left thalamic hemorrhage. No hydrocephalus. No acute process. A CT angiogram of the head and neck was negative for stenosis, occlusion, aneurysm, or dissection. An MRI of the brain was negative for acute infarct. There is normal evolutionary change of the previously identified 3 cm left thalamic hematoma. No new sites of hemorrhage. I reviewed the images as well as the radiologist's interpretation of these tests. An electrocardiogram completed yesterday reveals a normal sinus rhythm, 78 bpm. Coding Level of Care Code 18563 Inpt Consult Level 5 Diagnoses TIA (transient ischemic attack) G45.9
[2020-04-24] MEDS ORDERED: carvediloL 12.5 MG TAB PO STA (15:10)
[2020-04-24] MEDS ORDERED: AMLODIPINE BESYLATE 5 MG TAB PO STA (15:10)
--- NOTE | 2020-04-24 21:37 | Hospitalist Progress Note ---
Date of Service April 24, 2020 Assessment & Plan (1) TIA (transient ischemic attack): 54 yo M with PMH L Hemorrhagic CVA 5 weeks ago, presenting to ED today with symptoms of TIA. 1) TIA - CTA Head and negative for stenosis, occlusion or aneurysm - Given first stroke 5 weeks ago, patient is still high risk for repeat stroke within 3 months of initial event - most likely TIA given resolution within ~1 hour of symptom onset without intervention - MRI brain wo con ordered showed: No evidence for acute infarct. Expected evolution of the subacute to chronic hematoma within the left thalamus and posterior limb of the left internal capsule since head CT of March 16, 2020. - Appreciate Neuro input; may benefit from addition of aspirin therapy 2) Hx Hemorrhagic Stroke - continuing home 40 mg Atorvastatin -will resume amoldipine and coreg.- -WILL VERIFY IF PATIENT IS TAKING THIS MEDICATION -it appears patient is having workup for secondary hypertension at [facility] - will request records from [facility] from last stroke admission. A1c and lipid panel unlikely to have changed much in 5 weeks; follow up outpatient. 3) Hx Alcoholism - continue home daily folic acid and thiamine supplementation DVT ppx: SCDs FEN/GI: heart healthy diet, low sodium diet Code Status: Full Code Dispo: (2) Aphasia: (3) Heart murmur: (2) Aphasia: (3) Heart murmur: Admission and Anticipated Discharge Date Admission Date: April 24, 2020 Subjective Patient reports feeling well. He has no new complaints today. Review of Systems Review of Systems: All systems reviewed & are unremarkable except as noted in HPI & below Physical Exam Physical Exam: Constitutional: obese, in no apparent distress, sitting comfortably in bed. HENT: no facial droop Eyes: EOMI, pupils equal and reactive bilaterally, no scleral icterus Cardiac: RRR, 3/6 systolic ejection murmur heard best at apex, no gallops or rubs. Normal S1, S2 Pulm: CTA BL, no wheezes, rhonchi, crackles or rubs, moving air well throughout both lungs Abd: soft, nontender, nondistended, normal bowel sounds, no rebound or guarding, bruising across lower abdomen from SQ heparin Extremities: 2+ peripheral pulses, no edema Neuro: no focal deficits, moving all 4 limbs, A&Ox3, strength 5/5 at ankles bilaterally. Able to extend and flex lower extremity against resistance bilaterally. Flexion of upper extremities against resistance equal and strong, extension of right extremity 4+/5 Results & Data Results & Data ([facility]) Vital Signs (Past 12 Hours) Vital Signs Temp Pulse Resp BP Pulse Ox 04/24/20 19:34 36.5 C 78 20 160/71 H 97 04/24/20 15:45 36.5 C 78 18 138/74 94 PG Care Time/CCT Total # of Minutes Spent Total Time Spent with Patient: Total time spent is greater than 50% in coordination of care (as documented) at patient's floor/unit and/or counseling patient: Coding Level of Care Code 75910 Subseq Hosp Care Lvl 3 Diagnoses TIA (transient ischemic attack) G45.9 Aphasia R47.01 Heart murmur R01.1 Time Spent (min) 35
[2020-04-25 06:39] LABS: BUN Creatinine Ratio 15.9 (10-20); Calcium 8.9 mg/dl (8.5-10.1); Creatinine Clr Calc Pharmacy 134.9 ml/min; Est GFR (African American) 116.4; Est GFR (Non-African American) 100.5; Potassium 4.1 mmol/L (3.5-5.1)
[2020-04-25] MEDS: ASPIRIN 81 MG ECTAB PO SCH (08:27)
[2020-04-25] MEDS: FOLIC ACID 1 MG TAB PO SCH (08:27)
[2020-04-25] MEDS: ATORVASTATIN 40 MG TAB PO SCH (08:27)
[2020-04-25] MEDS: LORATADINE 10 MG TAB PO SCH (08:27)
[2020-04-25] MEDS: THIAMINE HCL 100 MG TAB PO SCH (08:27)
[2020-04-25] MEDS ORDERED: carvediloL 25 MG TAB PO SCH (09:30)
--- NOTE | 2020-04-25 10:07 | Discharge Summary ---
Date of Service April 25, 2020 Principal Diagnosis Transient ischemic attack Discharge Exam Constitutional: obese, in no apparent distress, sitting comfortably in bed. HENT: no facial droop Eyes: EOMI, pupils equal and reactive bilaterally, no scleral icterus Cardiac: RRR, 3/6 systolic ejection murmur heard best at apex, no gallops or rubs. Normal S1, S2 Pulm: CTA BL, no wheezes, rhonchi, crackles or rubs, moving air well throughout both lungs Abd: soft, nontender, nondistended, normal bowel sounds, no rebound or guarding, bruising across lower abdomen from SQ heparin Extremities: 2+ peripheral pulses, no edema Neuro: no focal deficits, moving all 4 limbs, A&Ox3, strength 5/5 at ankles bilaterally. Able to extend and flex lower extremity against resistance bilaterally. Flexion of upper extremities against resistance equal and strong, extension of right extremity 4+/5 Discharge Data Allergies Allergy/AdvReac Type Severity Reaction Status Date / Time No Known Allergies Allergy Verified 04/23/20 18:12 Consultations 04/23/20 18:50 ED Decision to Admit Stat 04/23/20 22:05 Consult Case Management - Discharge Planning Routine Consult Neurology Routine 04/25/20 09:33 Burn CD for patient Stat Ordered Studies 04/23/20 17:15 CT angio head w con Stat CT head/brain wo con Stat 04/23/20 17:26 CT angio neck with con Stat 04/23/20 22:05 MR brain wo con Urgent Hospital Course (1) TIA (transient ischemic attack): 54 yo M with PMH L Hemorrhagic CVA 5 weeks ago, presenting to ED today with symptoms of TIA. 1) TIA - CTA Head and negative for stenosis, occlusion or aneurysm -Strength is back to baseline. - Given first stroke 5 weeks ago, patient is still high risk for repeat stroke within 3 months of initial event - most likely TIA given resolution within ~1 hour of symptom onset without intervention - MRI brain wo con ordered showed: No evidence for acute infarct. Expected evolution of the subacute to chronic hematoma within the left thalamus and posterior limb of the left internal capsule since head CT of March 16, 2020. - Appreciate Neuro input (in bold); may benefit from addition of aspirin therapy TIA occurring in the context of hypertensive urgency and recent hemorrhagic left thalamic infarct. No acute or progressive process on recent imaging. No significant vascular lesions on CT angiography of the head and neck. Episode probably triggered by hypertension and possibly impaired cerebrovascular autoregulation in context of recent hemorrhagic infarct occurring last month. Again, no acute process identified. Patient is clinically stable this morning and appears to be back to his baseline with continued mild weakness of the right hand related to his previous hemorrhagic stroke. I agree with the addition of daily low-dose aspirin to this patient's medication regimen. Continue with atorvastatin. Continue management of hypertension. Patient remained well the following day. 2) Hx Hemorrhagic Stroke - continuing home 40 mg Atorvastatin -will resume amoldipine and coreg.- -it appears patient is having workup for secondary hypertension at [facility] - will defer further workup at [facility] 3) Hx Alcoholism - continue home daily folic acid and thiamine supplementation DVT ppx: SCDs FEN/GI: heart healthy diet, low sodium diet Code Status: Full Code Dispo: (2) Aphasia: (3) Heart murmur: (2) Aphasia: (3) Heart murmur: Total Time Total Time Spent Total Time Spent (In Minutes): 32 Total Time Includes: Examination of the Patient, Discharge Planning and Medication Reconciliation Discharge Plan Discharge Items Patient Disposition: Home - Self-Care Reason For Visit: APHASIA, STROKE Discharge Diagnosis: TIA Condition on Discharge: Good Activity: Resume your previous activity Non-emergency contact: Primary Care Provider Call non-emergency contact if: you have any medication questions Follow-up/Referrals: PCP,NO [Primary Care Provider] - Diet: Heart Healthy and Low Sodium (2gm) Addtl Attending Provider Instructions: Risk Factors for Stroke: You can reduce your chances of stroke by working with your medical provider to adopt a healthy lifestyle. Some specific ways to lower your chance of stroke are: * If you are a smoker, now is the time to stop smoking cigarettes * If you are diabetic, improve the control of your blood sugars * Avoid excessive amounts of alcohol * Control high blood pressure * Lose weight if you are overweight * Be sure to lead an active lifestyle * Eat a healthy diet low in salt, cholesterol and fat You should know about other risk factors for stroke that you are unable to control. These include: * Age 55 years or older * Male gender * Certain racial groups: , or / * Family History of Stroke, Mini stroke or Heart Attack * Sickle Cell Disease Follow Up: It is important for you to keep your follow up appointments with your medical provider. Who to Call and When: Medical Emergencies: Call 911 immediately if you experience any of the following warning signs and symptoms of Stroke: * Sudden numbness or weakness of the face, arm or leg, especially on one side of the body * Sudden confusion, trouble speaking or understanding * Sudden trouble seeing in one or both eyes * Sudden trouble walking, dizziness, loss of balance or coordination * Sudden severe headache with no cause Do not delay calling 911 if you experience any warning signs or symptoms of a stroke. Delay in seeking medical attention may affect what treatments can be given to you. . Pending Studies at Discharge: No Stand-Alone Forms: Medications to Prevent Stroke, [facility], Smoking Cessation Medications and DC Order Prescriptions: New aspirin 81 mg Tablet,Delayed Release (Dr/Ec) 81 mg PO DAILY Qty: 30 RF: 0 Continued atorvastatin 40 mg tablet 40 mg PO DAILY RF: 0 thiamine HCl (vitamin B1) 100 mg tablet 100 mg PO DAILY RF: 0 folic acid 1 mg tablet 1 mg PO DAILY RF: 0 loratadine 10 mg Tablet 10 mg PO DAILY RF: 0 Changed carvedilol 25 mg tablet 25 mg PO BID Qty: 0 RF: 0 amlodipine 10 mg tablet 10 mg PO QPM Qty: 0 RF: 0 Discharge Orders: Discharge Order (Routine); Ordered 04/25/20 Ordered By: Mo Stephenson Admission Data Admit Date/Time: 04/23/20 20:55 Attending Provider: Mo Stephenson Admit Provider: Fatemeh Abernathy Primary Care Provider: PCP,NO Other Providers: Yamileth Hearn ; Steve Barraza. Other Interventions: Discharge Summary Assessment (RN) Last Done: 04/25/20 10:56 DC Date/Time DO NOT enter until pt leaves facility: 04/25/20 11:24 Coding Level of Care Code D/C Day Management >30 mins Diagnoses TIA (transient ischemic attack) G45.9 Aphasia R47.01 Heart murmur R01.1 Time Spent (min) 32
[2020-04-25] MEDS ORDERED: STROKE PATIENT DISCHARGE STA (10:51)
--- NOTE | 2020-04-25 11:12 | Pharmacy Report ---
Pharmacist Stroke Counseling - Date of Service April 25, 2020 - Scope: Pharmacy has been consulted to provide medication discharge counseling for this patient admitted with transient ischemic attack as per the Pharmacist Discharge Counseling for Stroke Patients Protocol. - Medications on Discharge: Home Medications Medication Instructions Recorded Confirmed atorvastatin 40 mg PO DAILY 04/23/20 04/23/20 folic acid 1 mg PO DAILY 04/23/20 04/23/20 loratadine 10 mg PO DAILY 04/23/20 04/23/20 thiamine HCl (vitamin B1) 100 mg PO DAILY 04/23/20 04/23/20 New Rx's Medication Instructions Recorded amlodipine 10 mg PO QPM #0 tab 04/25/20 aspirin 81 mg PO DAILY #30 tab 04/25/20 carvedilol 25 mg PO BID #0 tab 04/25/20 - Action: The above medications, specifically ones for stroke treatment/prophylaxis, have been reviewed in detail with the patient and/or patient merchandiser retail representative(s) prior to discharge. This includes indication, common adverse reactions, drug interactions, and medication administration. Medication counseling has been employed using the teach-back method to ensure understanding. - Outcome: The patient and/or patient merchandiser retail representative(s) have demonstrated understanding of the medications. Additional comments: - Patient understanding of medication changes (i.e. addition of aspirin 81 mg daily, carvedilol changed to 25 mg BID from once daily, and amlodipine 10 mg daily timing changed to bedtime). No barriers to compliance identified. Patient already has pillbox. Thank you for allowing pharmacy to be involved in the care of this patient. Please call [phone] with any additional questions
[2020-04-25] MEDS ORDERED: AMLODIPINE BESYLATE 5 MG TAB PO SCH (21:00)
== END 2020-04-25 11:24 | disposition home or self-care (01) | DRG 69 ==
LOC: 2N 17:19 → ED 17:19 → SUATTDRO 20:55 → 2N 21:31

== ENCOUNTER 2024-12-09 04:31 | Observation (INO) ==
--- NOTE | 2024-12-09 04:55 | Emergency Department Note ---
Impression & Plan Acute anterior epistaxis, Anemia ED Provider Note NAME: GERSON GUZMAN AGE: 59 SEX: M : 1965 ARRIVES VIA: Walk-In INFORMANT: Patient ED PROVIDER(S): Román Diaz DO CHIEF COMPLAINT: Epistaxis HPI: Patient is a 59-year-old male with a past medical history of a CVA, TIA, who presents to the ER for nosebleed. He notes initially started 2 days ago and resolved. It then recurred tonight and has been off and on tonight. Initially started out of the left nare but when it gets bad he notes it will sometimes come out of the right side 2. He denies dizziness or lightheadedness. No headache or change in vision. No chest pain or shortness of breath. No nausea vomiting or diarrhea. No blood thinners other than aspirin. No trauma. ADDITIONAL HISTORY OBTAINED: Per HPI Chronic Medical/Social Conditions Affecting Care: Per HPI PAST MEDICAL HISTORY:See Below PAST SURGICAL HISTORY:See Below FAMILY HISTORY:See Below SOCIAL HISTORY:See Below HOME MEDICATIONS:See Below ALLERGIES:See Below VITALS:See Below PHYSICAL EXAMINATION: GENERAL: Sitting up in bed, alert, well appearing, well nourished, no distress, non-toxic EYE EXAM: normal conjunctiva. OROPHARYNX:mucous membranes are moist NOSE: Bleeding out of the left nare. Unable to visualize. Right nare with intermittent bleeding. NECK: supple, no nuchal rigidity, no adenopathy, non-tender LUNGS: Clear to auscultation. Normal chest wall mechanics HEART: no murmurs, S1 normal and S2 normal ABDOMEN: abdomen soft, non-tender, normo-active bowel sounds, no masses, no rebound or guarding. UPPER EXTREMITIES: upper extremities are grossly normal. LOWER EXTREMITIES: No pitting edema. NEURO EXAM: Normal sensorium, cranial nerves II-XII grossly intact, normal speech, no gross weakness of arms, no gross weakness of legs. MEDICAL DECISION MAKING: Patient is a 59-year-old male who presents ER for the below stated complaint. Upon evaluation he has been bleeding from the left nare and intermittently the right nare as well. I placed a 5.5 Rhino with 4 cc in the left nare. All bleeding stopped from the left nare and he had intermittent bleeding from the right at this time. Afrin was tried and then this was followed by a nasal clamp. He still had intermittent bleeding from the right nare. This was consequently packed with a 5.5 Rhino and 4 cc of air was placed. Bleeding stopped. CBC resulted and showed a drop of 4 g since last month. BMP was unremarkable. Case was discussed with the hospitalist for further evaluation management treatment as he had bilateral packing placed. He was given fluids and Augmentin. INR was normal. Patient did also have 2 slightly low blood pressures in the 90s. He was given IV fluids. Patient was monitored closely. Patient was also typed and screened. Consults/Care Managements Discussions: Per [facility] Triage Nursing notes reviewed. Limited review of prior medical records performed Vital Signs: reviewed and remarkable for no significant abnormalities Differential diagnosis: Anterior epistaxis, coagulopathy, traumatic injury, fracture, septal hematoma, posterior epistaxis, infections, as well as other pathologies. ER treatment provided: See below Diagnostics interpreted by me include EKG and cardiac monitoring as listed below: -ECG: none -Laboratory studies:Interpreted by me as stated above in [facility] and shown below. Imaging studies: Xrays: As interpreted by me:none CTs show: none Procedures:Anterior Nasal Packing Indication: Left nare Verbal consent obtained. Risks and benefits were explained with the usual customary discussion. A time out was taken. Clots were removed with suction. The left naris was prepped with Afrin. A 5.5-cm nasal balloon was placed in a standard fashion. The patient tolerated this well. Hemostasis was achieved. No complications. Indication: right nare Verbal consent obtained. Risks and benefits were explained with the usual customary discussion. A time out was taken. Clots were removed with suction. The left naris was prepped with Afrin. A 5.5-cm nasal balloon was placed in a standard fashion. The patient tolerated this well. Hemostasis was achieved. No complications. Critical Care: None Past Med/Surg History Problem List (Updated 12/09/24 @ 06:21 by Mirian Fitzgerald PA-C) Hypotension ABLA (acute blood loss anemia) Acute anterior epistaxis (Acute) Acute posterior epistaxis (Acute) Epistaxis (Acute) Environmental and seasonal allergies Class 1 obesity due to excess calories with serious comorbidity and body mass index (BMI) of 34.0 to 34.9 in adult Hemiparesis affecting right side as late effect of cerebrovascular accident Former smoker (Chronic) Hypertension TIA (transient ischemic attack) Changing pigmented skin lesion Skin tag Anxiety Anemia (Acute) Hyperlipidemia Colon cancer screening Moderate aortic stenosis (Chronic) Moderate aortic regurgitation (Chronic) BPH (benign prostatic hyperplasia) Erectile dysfunction Medical History Injury of toe, left, superficial, infected Class 1 obesity due to excess calories with serious comorbidity and body mass index (BMI) of 34.0 to 34.9 in adult Seasonal allergies Hyperlipidemia Anemia Aphasia Anxiety Hypertension Hemorrhagic cerebrovascular accident (CVA) (03/16/20) Surgical History No history of previous surgery Family History Father Myocardial infarction Mother Myocardial infarction Sister Hypertension Myocardial infarction Stroke Diabetes Social History Smoking Status: Never smoker Tobacco Type: Cigarettes Age Started Using Tobacco: 22; Age Quit Using Tobacco: 53; packs per day: 0.75; Second Hand Exposure: No; Do You Dip or Chew Tobacco: No; Hx Alcohol Use: Yes Alcohol type: beer Hx Substance Use: No Preferred Language: Persian Communication Ability: Effective Care Tech Required: No Beliefs That Will Affect Care: None marital status: Current Living Situation: Spouse 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[employer] [place] Feels Safe at Home: Yes Childhood Exposure to Second-Hand Smoke: Yes Diet: regular caffeine: Yes Dental Care, Regularly: Yes Physical Activity Frequency: Daily Seatbelt Use: always Sunscreen Use: Yes Assistive Devices: Contacts and Glasses Allergies Allergies Allergy/AdvReac Type Severity Reaction Status Date / Time No Known Allergies Allergy Verified 11/10/24 08:36 Home Meds Home Medications Medication Instructions Recorded Confirmed multivitamin 1 tab PO QAM 07/27/20 11/10/24 aspirin 81 mg tablet,delayed 81 mg PO QAM 05/18/21 11/10/24 release Previous Rx's Medication Instructions Recorded fexofenadine 180 mg tablet 180 mg PO QAM #90 tabs 12/03/23 carvedilol 25 mg tablet 25 mg PO BID #180 tabs 08/19/24 tadalafil 5 mg tablet (Cialis) 5 mg PO DAILY #90 tabs 08/19/24 amlodipine 10 mg tablet 10 mg PO QPM #90 tabs 08/27/24 buspirone 7.5 mg tablet 7.5 mg PO BID #180 tabs 08/27/24 folic acid 1 mg tablet 1 mg PO QAM #90 tabs 08/27/24 thiamine HCl (vitamin B1) 100 mg 100 mg PO QAM #90 tabs 08/27/24 tablet atorvastatin 40 mg tablet 40 mg PO QAM #90 tabs 11/10/24 Results & Data (ED) Vital Signs Vital Signs - 24 hr 12/09/24 04:36 12/09/24 04:58 12/09/24 05:01 Temperature 36.5 C Temperature Source Temporal Artery Scan Pulse Rate 98 H 80 Pulse Rate [Apical] 77 Respiratory Rate 16 16 Respiratory Effort / Characteristics Non-Labored Spontaneous Respiratory Depth Normal Respiratory Pattern Regular Blood Pressure 96/68 L Blood Pressure [Right Arm] 123/82 Blood Pressure Mean 77 Blood Pressure Mean [Right Arm] 95 Pulse Oximetry 98 96 Oxygen Delivery Method Room Air Room Air Sepsis Recent Fever Within 48 Hours No Sepsis New/Unexplained Change in Mental Status No Sepsis Action Taken by Nursing No Action Required 12/09/24 05:22 Temperature Temperature Source Pulse Rate Pulse Rate [Apical] 81 Respiratory Rate 22 Respiratory Effort / Characteristics Non-Labored Spontaneous Respiratory Depth Normal Respiratory Pattern Regular Blood Pressure Blood Pressure [Right Arm] 92/63 L Blood Pressure Mean Blood Pressure Mean [Right Arm] 72 Pulse Oximetry 97 Oxygen Delivery Method Room Air Sepsis Recent Fever Within 48 Hours Sepsis New/Unexplained Change in Mental Status Sepsis Action Taken by Nursing Laboratory Data 12/09/24 05:11 12/09/24 05:11 Lab Results 12/09/24 12/09/24 Range/Units 05:11 05:12 WBC 7.29 (4.8-10.8) K/ul RBC 3.28 L (4.70-6.10) M/uL Hgb 10.0 L (14.0-18.0) g/dl Hct 28.9 L (42.0-52.0) % MCV 88.1 (80.0-100.0) fL MCH 30.5 (25.0-34.0) pg MCHC 34.6 (32.0-36.0) g/dL RDW Std Deviation 40.5 (36.4-46.3) fL RDW Coeff of Harjinder 12.6 (11.5-14.5) % Plt Count 196 (130-400) K/uL MPV 10.9 (9.4-12.4) fL PT 12.2 H (9.0-12.0) Seconds INR 1.1 (0.9-1.1) Sodium 138 (136-145) mmol/L Potassium 4.5 (3.5-5.1) mmol/L Chloride 107 (98-107) mmol/L Carbon Dioxide 26 (21-32) mmol/L Anion Gap 5 (3-11) BUN 32 H (6-23) mg/dl Creatinine 0.90 (0.6-1.4) mg/dl Est Cr Clr Drug Dosing 106.8 ml/min eGFR 99.00 BUN/Creatinine Ratio 35.6 H (10-20) Glucose 120 H (70-99(Fasting)) mg/dl Calcium 8.5 L (8.6-10.3) mg/dl Administered Medications Sodium Chloride (Nss) 1,000 mls @ 999 mls/hr IV .Q1H1M ONE Stop: 12/09/24 06:38 Last Admin: 12/09/24 05:53 Dose: 999 mls/hr Documented By: MED Discontinued Medications Amoxicillin/Clavulanate Potassium (Amoxicillin/Clavulanate 875 Mg Tab) 1 tab PO NOW ONE; Protocol Stop: 12/09/24 04:56 Last Admin: 12/09/24 05:02 Dose: 1 tab Documented By: MED Oxymetazoline HCl (Oxymetazoline 0.05% 30 Ml Btl) Confirm Administered Dose 150 sprays .ROUTE .STK-MED ONE Stop: 12/09/24 04:42 Last Admin: 12/09/24 05:02 Dose: 150 sprays Documented By: MED Discharge Plan Visit Data Chief Complaint: Nose Bleed (Minor) Stated Complaint: NOSE BLEED ED Provider: Román Diaz Discharge Problem: Acute anterior epistaxis, Anemia Forms Stand Alone Forms: My [facility] Prescriptions Prescriptions: No Action carvedilol 25 mg tablet 25 mg PO BID Qty: 180 3RF tadalafil [Cialis] 5 mg tablet 5 mg PO DAILY Qty: 90 3RF amlodipine 10 mg tablet 10 mg PO QPM Qty: 90 3RF buspirone 7.5 mg tablet 7.5 mg PO BID Qty: 180 5RF folic acid 1 mg tablet 1 mg PO QAM Qty: 90 3RF thiamine HCl (vitamin B1) 100 mg tablet 100 mg PO QAM Qty: 90 3RF fexofenadine 180 mg tablet 180 mg PO QAM Qty: 90 3RF atorvastatin 40 mg tablet 40 mg PO QAM Qty: 90 3RF multivitamin Tablet 1 tab PO QAM aspirin 81 mg tablet,delayed release (DR/EC) 81 mg PO QAM Referrals Referrals: Heber Clements DO [Primary Care Provider] - Discharge Problem: Anemia Qualifiers: Anemia type: unspecified type Qualified Code(s): D64.9 - Anemia, unspecified
[2024-12-09] MEDS: AMOXICILLIN/CLAVULANATE 875 MG TAB PO ONE (05:02)
[2024-12-09] MEDS: OXYMETAZOLINE 0.05% 30 ML BTL ONE (05:02)
[2024-12-09 05:32] LABS: Hematocrit (blood only) 28.9 % (42.0-52.0); Mean Corpuscular Hemoglobin 30.5 pg (25.0-34.0); Mean Corpuscular Hgb Conc 34.6 g/dL (32.0-36.0); Mean Corpuscular Volume 88.1 fL (80.0-100.0); Mean Platelet Volume 10.9 fL (9.4-12.4); Platelet Count 196 K/uL (130-400); RDW Coefficient of Variation 12.6 % (11.5-14.5); RDW Standard Deviation 40.5 fL (36.4-46.3); Red Blood Count 3.28 M/uL (4.70-6.10); White Blood Count 7.29 K/ul (4.8-10.8)
[2024-12-09 05:42] LABS: BUN Creatinine Ratio 35.6 (10-20); Calcium 8.5 mg/dl (8.6-10.3); Creatinine Clr Calc Pharmacy 106.8 ml/min; Potassium 4.5 mmol/L (3.5-5.1)
[2024-12-09] MEDS: SODIUM CHLORIDE 0.9% 1,000 ML IV ONE (05:53)
[2024-12-09 06:03] LABS: INR 1.1 (0.9-1.1); Prothrombin Time 12.2 Seconds (9.0-12.0)
--- NOTE | 2024-12-09 06:10 | History & Physical Report ---
Date of Service December 09, 2024 Assessment & Plan (1) Epistaxis: (2) ABLA (acute blood loss anemia): (3) Hypotension: (4) Hemorrhagic cerebrovascular accident (CVA): Plan Patient is a 59-year-old male with past medical history of hypertension, hyperlipidemia, aortic stenosis, aortic regurgitation, BPH, CVA in 2020 on aspirin, anxiety. He presented to the ED due to a nosebleed unresolved with Afrin at home. He is being admitted after bilateral nasal packing due to anemia with a drop of hemoglobin 4 points. #Epistaxis/ABLA Nosebleed for several days s/p bilateral packing in ED Hgb dropped from 14.0-10.0 ENT consulted and attempt to control bleeding Augmentin 875 Mg started in ED; continue Augmentin 875 twice daily for PPx s/p packing Trend H&H every 4 hours Blood transfusion if Hgb drops <7 type and screen ordered Hold aspirin; patient took a.m. 12/09 #Hypotension BP noted to be 92/63 Likely 2/2 ABLA does appear slightly dry with BUN elevated at 32 and BUN/CR ratio 35.6 1L NSS bolus ordered in ED with improvement of pressure to 105/67 Continue gentle IVF resuscitation at 80 mL/hour x 1 bag hold evening doses of amlodipine and carvedilol 12/09 #history of CVA in 2019 Left thalamic intraparenchymal hemorrhage in 2019 requiring transfer to [facility] Patient return 5 weeks later with TIA 2/2 HTN urgency Patient was started on baby aspirin and statin at this time If ENT unable to stop bleeding, recommend discussion with neurology prior to DDAVP for aspirin reversal with high risk stroke history Chronic stable diagnoses: HTNcontinue carvedilol and amlodipine 12/10 HLDcontinue atorvastatin Anxietycontinue BuSpar VTE ppx: SCDs, bleeding risk Diet: heart healthy [facility] and Anticipated Discharge Date Admission Date: 12/09/24 History of Present Illness Chief Complaint: nosebleed Primary Care Provider: Heber Clements, Patient is a 59-year-old male with past medical history of hypertension, hyperlipidemia, aortic stenosis, aortic regurgitation, BPH, CVA in 2020 on aspirin, anxiety. He presented to the ED due to a nosebleed unresolved with Afrin at home. He is being admitted after bilateral nasal packing due to anemia with a drop of hemoglobin 4 points. Patient seen at bedside. He had a nosebleed for several days and used Afrin in ED 12/07/24 which resolved the nosebleed. It then returned around 630 last night mostly coming out of the left nare but then started to come out of the right as well. He then presented to the ED where he received left nare packing which stopped the bleeding while he had intermittent bleeding from the right. Afrin was tried followed by nasal clamping and eventually he had packing of the right nare as well. CBC showed a drop of hemoglobin from 14.0-10.0. Patient denies dizziness, lightheadedness, chest pain, shortness of breath, nausea. He endorses a mild headache but thinks it is secondary to not having his morning coffee. He did take his home medications prior to coming into the ED including his baby aspirin. He does not use nicotine products or drink alcohol regularly, he drinks 3 beers a couple of days a week but not daily. He does not use oxygen at baseline. He wishes to be full code. Allergies Allergy/AdvReac Type Severity Reaction Status Date / Time No Known Allergies Allergy Verified 11/10/24 08:36 Home Medications Medication Instructions Recorded Confirmed Type multivitamin 1 tab PO QAM 07/27/20 12/09/24 History aspirin 81 mg tablet,delayed 81 mg PO QAM 05/18/21 12/09/24 History release fexofenadine 180 mg tablet 180 mg PO QAM #90 tabs 12/03/23 12/09/24 Rx carvedilol 25 mg tablet 25 mg PO BID #180 tabs 08/19/24 12/09/24 Rx tadalafil 5 mg tablet (Cialis) 5 mg PO DAILY #90 tabs 08/19/24 12/09/24 Rx amlodipine 10 mg tablet 10 mg PO QPM #90 tabs 08/27/24 12/09/24 Rx buspirone 7.5 mg tablet 7.5 mg PO BID #180 tabs 08/27/24 12/09/24 Rx folic acid 1 mg tablet 1 mg PO QAM #90 tabs 08/27/24 12/09/24 Rx thiamine HCl (vitamin B1) 100 mg 100 mg PO QAM #90 tabs 08/27/24 12/09/24 Rx tablet atorvastatin 40 mg tablet 40 mg PO QAM #90 tabs 11/10/24 12/09/24 Rx Past Med/Surg History Problem List (Updated 12/09/24 @ 06:21 by Mirian Fitzgerald PA-C) Hypotension ABLA (acute blood loss anemia) Acute anterior epistaxis (Acute) Acute posterior epistaxis (Acute) Epistaxis (Acute) Environmental and seasonal allergies Class 1 obesity due to excess calories with serious comorbidity and body mass index (BMI) of 34.0 to 34.9 in adult Hemiparesis affecting right side as late effect of cerebrovascular accident Former smoker (Chronic) Hypertension TIA (transient ischemic attack) Changing pigmented skin lesion Skin tag Anxiety Anemia (Acute) Hyperlipidemia Colon cancer screening Moderate aortic stenosis (Chronic) Moderate aortic regurgitation (Chronic) BPH (benign prostatic hyperplasia) Erectile dysfunction Medical History Injury of toe, left, superficial, infected Class 1 obesity due to excess calories with serious comorbidity and body mass index (BMI) of 34.0 to 34.9 in adult Seasonal allergies Hyperlipidemia Anemia Aphasia Anxiety Hypertension Hemorrhagic cerebrovascular accident (CVA) (03/16/20) Surgical History No history of previous surgery Family History Father Myocardial infarction Mother Myocardial infarction Sister Hypertension Myocardial infarction Stroke Diabetes Social History Smoking Status: Former smoker Tobacco Type: Cigarettes Age Started Using Tobacco: 22; Age Quit Using Tobacco: 53; packs per day: 0.75; Second Hand Exposure: No; Do You Dip or Chew Tobacco: No; Hx Alcohol Use: No Hx Substance Use: No Preferred Language: Taiwanese Communication Ability: Effective Asset Protection Lead Required: No Beliefs That Will Affect Care: None marital status: Current Living Situation: Alone 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 Non-toxic appearing. HEENT- EOMI, mucous membranes moist. Hearing grossly intact. BL packing, dried blood. Heart-normal S1 and S2. No murmurs, rubs or gallops. Lungs-clear bilaterally, no respiratory distress, no accessory muscle use. Abdomen-normal bowel sounds and soft. No ascites noted. Non-tender. Extremities- no clubbing, cyanosis, or edema. Rheumatologic-normal range of motion. Psychiatric-normal affect. Results & Data Results & Data Vital Signs (Past 12 Hours) Vital Signs Temp Pulse Pulse Resp BP BP Pulse Ox 12/09/24 05:22 81 22 92/63 L 97 12/09/24 05:01 80 12/09/24 04:58 77 16 123/82 96 12/09/24 04:36 36.5 C 98 H 16 96/68 L 98 O2 Del Method 12/09/24 05:22 Room Air 12/09/24 05:01 12/09/24 04:58 Room Air 12/09/24 04:36 Room Air Laboratory Results reviewed cbc and bmp Medications Administered ed: 1 l nss, afrin, augmentin 875mg ECG Additional Comments: ordered Code Status & VTE Plan Code Status full code VTE Prophylaxis Plan VTE Prophylaxis will be ordered: Yes Supervising Physician Co-Signing Physician Notes Attending addendum: I have physically seen this patient, have supervised the medical residents activities, and agree with the H&P unless as otherwise noted. Assessment and Plan: The patient is a 59-year-old male with past medical history including hypertension, hyperlipidemia, aortic stenosis, aortic regurgitation, BPH, hemorrhagic CVA in 2019, follow-up TIA now on aspirin and 2019, and anxiety. He presents to the emergency department after uncontrolled epistaxis that initially began 2 days ago, worsened over the past few hours prior to arrival, despite use of Afrin at home. Patient was noted to drop his hemoglobin 4 g compared to most recent on file. Epistaxis/ABLA- Nosebleed is noted, with bilateral packing in the ED Hemoglobin has dropped from 14 down to 10 Started on Augmentin in the ED Trending H&H every 4 hours Hold aspirin, with last dose having been taken on 2/13 Would not reverse aspirin due to history of significant cerebrovascular disease unless uncontrolled bleeding Consult ENT Relative hypotension- Blood pressure decreased to 92/63 with MAP 71 Status post 1 L normal saline bolus in ED improves pressure to 105/67 Continue NSS 80 mL/h x 1 additional liter Hold dosages of amlodipine and carvedilol for now History of CVA 2019- Left thalamic intraparenchymal hemorrhage in 2019 requiring transfer to [facility] in [place] TIA 5 weeks later with hypertensive urgency, with baby aspirin started at that time Remaining orders and notations as noted PG Care Time/CCT Total # of Minutes Spent Total Time Spent with Patient: Total time spent is greater than 50% in coordination of care (as documented) at patient's floor/unit and/or counseling patient: Coding Level of Care Code 75344 INT INP/OBS CARE 375MIN Diagnoses Epistaxis R04.0 ABLA (acute blood loss anemia) D62 Hypotension I95.9 Hemorrhagic cerebrovascular accident (CVA) I61.9
[2024-12-09] MEDS: SODIUM CHLORIDE 0.9% 1,000 ML IV SCH (06:41)
[2024-12-09 06:42] LABS: Albumin Level 3.7 gm/dl (3.4-5.0); Bilirubin Direct 0.1 mg/dl (0-0.2); Bilirubin,Total 0.5 mg/dl (0.2-1.0); Total Protein 6.3 gm/dl (6.0-8.3)
[2024-12-09] MEDS ORDERED: ONDANSETRON INJ 2 MG/ML 2 ML VIAL IV PRN (08:50)
[2024-12-09] MEDS ORDERED: ACETAMINOPHEN 325 MG TAB PO PRN (08:50)
[2024-12-09 10:31] LABS: Hematocrit (blood only) 26.9 % (42.0-52.0); Hemoglobin 9.3 g/dl (14.0-18.0)
--- NOTE | 2024-12-09 12:14 | ENT Consultation ---
Date of Consultation December 09, 2024 Assessment & Plan (1) Epistaxis: Since patient has already eaten today will plan for possible cauterization tomorrow morning after NPO at [place]. Deflated the right rhinorocket with plans to reinflate if bleeds from anywhere. Discussed and demonstrated to nursing. P atient very agreeable to plan. History of Present Illness Reason for Consultation: epistaxis Attending Physician: Clifton Sidhu MD History of Present Illness 59 year old with severe left epistaxis uncontrolled with usual measures of afrin and external pressure. He has never had a nosebleed like this. He uses ASA but no other anticoagulant medication. He's had a few episodes of minor epistaxis prior to this, he thinks left. This episode started on the left but progressed to both nostrils. In the ER he had bilateral packing placed. H/H revealed a large drop. Patient admitted due to bilateral packing and severity. He was not placed NPO and ate about 1 hour before I saw him. Allergies Allergy/AdvReac Type Severity Reaction Status Date / Time No Known Allergies Allergy Verified 11/10/24 08:36 Home Medications Medication Instructions Recorded Confirmed Type multivitamin 1 tab PO QAM 07/27/20 12/09/24 History aspirin 81 mg tablet,delayed 81 mg PO QAM 05/18/21 12/09/24 History release fexofenadine 180 mg tablet 180 mg PO QAM #90 tabs 12/03/23 12/09/24 Rx carvedilol 25 mg tablet 25 mg PO BID #180 tabs 08/19/24 12/09/24 Rx tadalafil 5 mg tablet (Cialis) 5 mg PO DAILY #90 tabs 08/19/24 12/09/24 Rx amlodipine 10 mg tablet 10 mg PO QPM #90 tabs 08/27/24 12/09/24 Rx buspirone 7.5 mg tablet 7.5 mg PO BID #180 tabs 08/27/24 12/09/24 Rx folic acid 1 mg tablet 1 mg PO QAM #90 tabs 08/27/24 12/09/24 Rx thiamine HCl (vitamin B1) 100 mg 100 mg PO QAM #90 tabs 08/27/24 12/09/24 Rx tablet atorvastatin 40 mg tablet 40 mg PO QAM #90 tabs 11/10/24 12/09/24 Rx Patient History Medical History Injury of toe, left, superficial, infected Class 1 obesity due to excess calories with serious comorbidity and body mass index (BMI) of 34.0 to 34.9 in adult Seasonal allergies Hyperlipidemia Anemia Aphasia Anxiety Hypertension Hemorrhagic cerebrovascular accident (CVA) (03/16/20) Surgical History No history of previous surgery Family History Father Myocardial infarction Mother Myocardial infarction Sister Hypertension Myocardial infarction Stroke Diabetes Social History Smoking Status: Former smoker Tobacco Type: Cigarettes Age Started Using Tobacco: 22; Age Quit Using Tobacco: 53; packs per day: 0.75; Second Hand Exposure: No; Do You Dip or Chew Tobacco: No; Hx Alcohol Use: No Hx Substance Use: No Preferred Language: Tajik Communication Ability: Effective Safe Deposit Attendant Required: No Beliefs That Will Affect Care: None marital status: Current Living Situation: Alone 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 Neck: trachea midline Neuro: Alert and oriented, Moves all 4 extremities, Symmetric and normal facial nerve function Derm: No lesions noted on face or neck Cardiovascular: No JVD I used a luer lock to deflate the right rhinorocket. I showed the nurse how to re-inflate if needed. Taped the sentinel balloons to patient's cheeks. Results & Data Vital Signs (Past 12 Hours) Vital Signs Temp Pulse Pulse Pulse Resp BP BP 12/09/24 09:18 36.6 C 75 18 132/77 12/09/24 08:02 02/13/25 08:00 70 17 107/59 L 12/09/24 06:24 67 12 103/69 12/09/24 05:22 81 22 92/63 L 12/09/24 05:01 80 12/09/24 04:58 77 16 123/82 12/09/24 04:36 36.5 C 98 H 16 96/68 L Pulse Ox O2 Del Method 12/09/24 09:18 96 Room Air 12/09/24 08:02 Room Air 12/09/24 08:00 96 Room Air 12/09/24 06:24 97 Room Air 12/09/24 05:22 97 Room Air 12/09/24 05:01 12/09/24 04:58 96 Room Air 12/09/24 04:36 98 Room Air Laboratory Results Drop of 4 points in hemoglobin. Abnormal coagulation studies as well. PG Care Time/CCT Total # of Minutes Spent Total Time Spent with Patient: Total time spent is greater than 50% in coordination of care (as documented) at patient's floor/unit and/or counseling patient: Coding Level of Care Code 32401 IN/OBS CONSULT LVL 2,35M Diagnoses Epistaxis R04.0
--- NOTE | 2024-12-09 15:24 | Electrocardiogram Report ---
Test Reason : Blood Pressure : */* mmHG Vent. Rate : 71 BPM Atrial Rate : 71 BPM P-R Int : 210 ms QRS Dur : 82 ms QT Int : 416 ms P-R-T Axes : 37 45 77 degrees QTcB Int : 452 ms Sinus rhythm with 1st degree A-V block with occasional Premature ventricular complexes Otherwise normal ECG When compared with ECG of 23-Apr-2020 17:43, Premature ventricular complexes are now Present Confirmed by Aayush Miller ([id number]) on 12/09/2024 3:24:26 PM Referred By: REFERRED SELF Confirmed By: Aayush Miller
[2024-12-09 15:26] LABS: Hematocrit (blood only) 26.2 % (42.0-52.0); Hemoglobin 9.1 g/dl (14.0-18.0)
[2024-12-09] MEDS: AMOXICILLIN/CLAVULANATE 875 MG TAB PO SCH (17:08)
[2024-12-09] MEDS: carvediloL 25 MG TAB PO SCH (17:08)
[2024-12-09 18:11] LABS: Hematocrit (blood only) 26.8 % (42.0-52.0); Hemoglobin 9.2 g/dl (14.0-18.0)
[2024-12-09] MEDS: busPIRone 7.5 MG TAB PO SCH (21:29)
[2024-12-10] MEDS ORDERED: MIDAZOLAM HCL 1 MG/ML 2ML VIAL ONE (06:39)
[2024-12-10] MEDS ORDERED: fentaNYL citrate PF 100 MCG/2 ML VIAL ONE (06:39)
[2024-12-10] MEDS: LACTATED RINGER'S 1,000 ML IV SCH (06:40)
--- NOTE | 2024-12-10 06:40 | History & Physical Bridge Note ---
Date of Service December 10, 2024 History & Physical Bridge Note I have examined the patient, reviewed the History & Physical and in the interval since the performance of the History & Physical I have noted the following changes of clinical significance: no changes noted Supervising Physician Co-Signing Physician Notes Attending addendum: I have physically seen this patient, have supervised the medical residents activities, and agree with the H&P unless as otherwise noted. Assessment and Plan: The patient is a 59-year-old male with past medical history including hypertension, hyperlipidemia, aortic stenosis, aortic regurgitation, BPH, hemorrhagic CVA in 2019, follow-up TIA now on aspirin and 2020, and anxiety. He presents to the emergency department after uncontrolled epistaxis that initially began 2 days ago, worsened over the past few hours prior to arrival, despite use of Afrin at home. Patient was noted to drop his hemoglobin 4 g compared to most recent on file. Epistaxis/ABLA- Nosebleed is noted, with bilateral packing in the ED Hemoglobin has dropped from 14 down to 10 Started on Augmentin in the ED Trending H&H every 4 hours Hold aspirin, with last dose having been taken on 12/09 Would not reverse aspirin due to history of significant cerebrovascular disease unless uncontrolled bleeding Consult ENT Relative hypotension- Blood pressure decreased to 92/63 with MAP 71 Status post 1 L normal saline bolus in ED improves pressure to 105/67 Continue NSS 80 mL/h x 1 additional liter Hold dosages of amlodipine and carvedilol for now History of CVA 2019- Left thalamic intraparenchymal hemorrhage in 2019 requiring transfer to [facility] in [place] TIA 5 weeks later with hypertensive urgency, with baby aspirin started at that time Remaining orders and notations as noted
[2024-12-10] MEDS ORDERED: PROPOFOL IV EMULSION 10 MG/ML 20 ML VIAL IV ONE (06:41)
[2024-12-10] MEDS ORDERED: LIDOCAINE 2% 2 ML VIAL/AMP(20MG/ML) INFIL ONE (06:41)
--- NOTE | 2024-12-10 06:41 | History & Physical Bridge Note ---
Date of Service December 10, 2024 History & Physical Bridge Note I have examined the patient, reviewed the History & Physical and in the interval since the performance of the History & Physical I have noted the following changes of clinical significance: no changes noted Plan for endoscopic control of epistaxis. The risks of bleeding, infection, perforation and/or need for further surgery discussed.
[2024-12-10] MEDS ORDERED: DEXAMETHASONE SOD INJ 4 MG/ML VIAL ONE (06:42)
[2024-12-10] MEDS ORDERED: ONDANSETRON INJ 2 MG/ML 2 ML VIAL ONE (06:42)
[2024-12-10] MEDS ORDERED: ROCURONIUM BROMIDE 10 MG/ML 5 ML VIAL IV ONE (06:49)
[2024-12-10] MEDS ORDERED: SUCCINYLCHOLINE CHLORIDE 20 MG/ML 10 ML VIAL IV ONE (07:05)
--- NOTE | 2024-12-10 07:05 | Anesthesiology Consultation ---
Date of Service December 10, 2024 Assessment & Plan (1) Encounter for pre-operative examination: Chart Review Chart Review: Acceptable Risk for Surgery and Patient NOT seen in Pre Admission Testing Consults Requested none History Surgery Operation Date: 12/10/24 07:15 Proposed Procedures p Endoscopic Control of Epistaxis - Kt Hardwick MD Height/Weight Height: 5 ft 9 in Weight: 106.5 kg Allergies Allergy/AdvReac Type Severity Reaction Status Date / Time No Known Allergies Allergy Verified 11/10/24 08:36 Medications Home Medications Medication Instructions Recorded Confirmed Last Taken multivitamin 1 tab PO QAM 07/27/20 12/09/24 12/09/24 aspirin 81 mg tablet,delayed 81 mg PO QAM 05/18/21 12/09/24 12/09/24 release fexofenadine 180 mg tablet 180 mg PO QAM #90 tabs 12/03/23 12/09/24 12/09/24 carvedilol 25 mg tablet 25 mg PO BID #180 tabs 08/19/24 12/09/24 12/09/24 tadalafil 5 mg tablet (Cialis) 5 mg PO DAILY #90 tabs 08/19/24 12/09/24 12/09/24 amlodipine 10 mg tablet 10 mg PO QPM #90 tabs 08/27/24 12/09/24 12/09/24 buspirone 7.5 mg tablet 7.5 mg PO BID #180 tabs 08/27/24 12/09/24 12/09/24 folic acid 1 mg tablet 1 mg PO QAM #90 tabs 08/27/24 12/09/24 12/09/24 thiamine HCl (vitamin B1) 100 mg 100 mg PO QAM #90 tabs 08/27/24 12/09/24 12/09/24 tablet atorvastatin 40 mg tablet 40 mg PO QAM #90 tabs 11/10/24 12/09/24 12/09/24 Active Medications Generic Name Dose Route Start Last Admin Trade Name Freq PRN Reason Stop Dose Admin Amoxicillin/Clavulanate Potassium 1 tab 12/09/24 17:00 12/09/24 17:08 Amoxicillin/Clavulanate 875 Mg Tab PO 12/19/24 16:59 1 tab BIDM TABBY Administration Protocol Buspirone HCl 7.5 mg 12/09/24 21:00 12/09/24 21:29 Buspirone 7.5 Mg Tab PO 01/08/25 20:59 7.5 mg BID TABBY Administration Carvedilol 25 mg 12/09/24 17:00 12/09/24 17:08 Carvedilol 25 Mg Tab PO 01/08/25 16:59 25 mg BIDM TABBY Administration Lactated Ringer's 1,000 mls @ 15 mls/hr 12/10/24 06:15 12/10/24 06:40 Lr IV 12/11/24 06:14 15 mls/hr .Q24H TABBY Administration NPO Date Last Intake of Fluids: 12/09/24 Time Last Intake of Fluids: 17:00 Date Last Intake of Solids: 12/09/24 Time Last Intake of Solids: 17:00 Past Medical History Medical History (Updated 12/10/24 @ 07:05 by Richard Pierre MD) Encounter for pre-operative examination Injury of toe, left, superficial, infected Seasonal allergies Anemia HX OF Aphasia VERY MILD SINCE STROKE Exercise / Class Metabolic Activity II 4-5 Yardwork/Stairs/Walk up hill Past Family History Family History Father Myocardial infarction Mother Myocardial infarction Sister Hypertension Myocardial infarction Stroke Diabetes Past Surgical History Surgical History No history of previous surgery Past Anesthesia History No Hx of Anesthesia Complications and No Family Hx of Anesthesia Complications Social History Smoking Status: Former smoker Do You Dip or Chew Tobacco: No Hx Alcohol Use: No Alcohol type: beer alcohol intake frequency: a few times a week Hx Substance Use: No substance use type: does not use Physical Exam Vital Signs Last Vital Signs Temp 36.9 C 12/10/24 06:36 Pulse 84 12/10/24 06:36 Resp 16 12/10/24 06:36 BP 120/71 12/10/24 06:36 Pulse Ox 95 12/10/24 06:36 O2 Del Method Room Air 12/10/24 06:36 Testing Laboratory Results 12/09/24 22:36 12/09/24 05:11 PT 12.2 Seconds (9.0-12.0) H 12/09/24 05:12 INR 1.1 (0.9-1.1) 12/09/24 05:12 Blood Type B Positive 12/09/24 06:02 Antibody Screen NEGATIVE 12/09/24 06:02
[2024-12-10] MEDS: OXYMETAZOLINE 0.05% 30 ML BTL ONE (07:27)
[2024-12-10] MEDS ORDERED: SUGAMMADEX SODIUM 200 MG/2 ML VIAL IV ONE (07:28)
[2024-12-10] MEDS ORDERED: ePHEDrine sulfate 50 MG/ML AMP IV PRN (07:30)
[2024-12-10] MEDS ORDERED: ATROPINE SULFATE 0.1 MG/ML 10ML SYR IV PRN (07:30)
[2024-12-10] MEDS ORDERED: ONDANSETRON INJ 2 MG/ML 2 ML VIAL IV PRN (07:30)
[2024-12-10] MEDS ORDERED: fentaNYL citrate PF 100 MCG/2 ML VIAL IV PRN (07:30)
--- NOTE | 2024-12-10 07:53 | Post Operative Brief Note ---
PG Immediate Post Op with CF Date of Surgery December 10, 2024 Pre & Post Diagnosis Operation Date: 12/10/24 07:15 Pre-Op Diagnosis: Epistaxis Post-Op Diagnosis: Epistaxis I identified the patient and participated in the time-out.: Yes Procedure Operation Date: 12/10/24 07:15 Actual Procedures p Endoscopic Control of Epistaxis(Not Applicable) - Kt Hardwick MD Surgeon Kt Hardwick MD Printer Repair Technician nonr Estimated Blood Loss 5 Findings Consistent with Post-Op Diagnosis Specimens Specimen Description: None per surgeon
--- NOTE | 2024-12-10 07:54 | Operative Report ---
PG Post Operative Report Pre & Post Diagnosis Operation Date: 12/10/24 07:15 Pre-Op Diagnosis: Epistaxis Post-Op Diagnosis: Epistaxis I identified the patient and participated in the time-out.: Yes Procedure Operation Date: 12/10/24 07:15 Actual Procedures p Endoscopic Control of Epistaxis(Not Applicable) - Kt Hardwick MD Surgeon Kt Hardwick MD Program Coordinator For Residence [employer] nonr Estimated Blood Loss 5 Findings Consistent with Post-Op Diagnosis Specimens none Complications none Description of Procedure The patient was met in the pre-operative holding area where operative consent and medical history were updated. The patient was taken back to the operating room and placed on the table in supine position. General endotracheal anesthesia was induced. The patient was prepped and draped in the normal sterile fashion. The rhinorocket was removed. The septum and turbinate on the left were injected with 5 mLs of 1% Lidocaine with 1:100,000 epinephrine. A zero degree endoscope was then inserted into the left nasal sinus and the middle turbinate was identified followed by the uncinate. There were areas of damage were cauterized with the suction cautery at a setting of 15 to 20. This was followed with afrin soaked pledget packing and repeat cautery for approximately 20 minutes. Nasopore packing was placed between the turbinate and septum in the area of maximal bleeding x 2.. The patient was awakened, extubated and taken to the recovery room in stable condition with no known complications. I attest to the content of the Intraoperative Record and any orders documented therein. Any exceptions are noted below.
--- NOTE | 2024-12-10 08:28 | Anesthesiology Progress Note ---
Date of Service December 10, 2024 Anesthesia Post Procedure Vital Signs Vital Signs: Temp Pulse Resp BP Pulse Ox O2 Del Method O2 Flow Rate 12/10/24 08:20 37.2 C 84 12 109/68 92 Room Air 0 12/10/24 08:10 83 13 113/67 93 Room Air 0 12/10/24 08:00 85 12 112/70 97 Room Air 0 12/10/24 07:50 84 14 114/70 98 Oxymask 4 12/10/24 07:43 36.3 C L 87 12 123/81 100 Oxymask 8 12/10/24 06:36 36.9 C 84 16 120/71 95 Room Air 12/09/24 22:34 36.7 C 84 18 99/60 L 95 Room Air 12/09/24 15:46 36.9 C 100 H 18 126/79 98 Room Air 12/09/24 09:18 36.6 C 75 18 132/77 96 Room Air Transfer of Care Handoff Completed per policy Notes Mental Status: alert / awake / arousable and participated in evaluation Patient Amnestic to Procedure: Yes Nausea / Vomiting: adequately controlled Pain: adequately controlled Airway Patency, RR, SpO2: stable & adequate BP & HR: stable & adequate Hydration State: stable & adequate Anesthetic Complications: no major complications apparent and Pt Satisfied with anesthetic care
[2024-12-10 08:37] VITALS: TEMP 97.5
[2024-12-10] MEDS: GELATIN SPONGE SZ 100 ONE (08:39)
[2024-12-10] MEDS: LIDOCAINE 1%/EPINEPHRINE 1:100,000 50 ML VIAL ONE (08:39)
[2024-12-10] MEDS: BACITRACIN OINT 14 GM TUBE ONE (08:39)
[2024-12-10] MEDS: FEXOFENADINE HCL 180 MG TAB PO SCH (08:53)
[2024-12-10] MEDS: ATORVASTATIN 40 MG TAB PO SCH (08:53)
--- NOTE | 2024-12-10 10:10 | Discharge Summary ---
Date of Service December 10, 2024 Admission HPI Per Admitting Provider Patient is a 59-year-old male with past medical history of hypertension, hyperlipidemia, aortic stenosis, aortic regurgitation, BPH, CVA in 2019 on aspirin, anxiety. He presented to the ED due to a nosebleed unresolved with Afrin at home. He is being admitted after bilateral nasal packing due to anemia with a drop of hemoglobin 4 points. Patient seen at bedside. He had a nosebleed for several days and used Afrin in ED 12/07/24 which resolved the nosebleed. It then returned around 630 last night mostly coming out of the left nare but then started to come out of the right as well. He then presented to the ED where he received left nare packing which stopped the bleeding while he had intermittent bleeding from the right. Afrin was tried followed by nasal clamping and eventually he had packing of the right nare as well. CBC showed a drop of hemoglobin from 14.0-10.0. Patient denies dizziness, lightheadedness, chest pain, shortness of breath, nausea. He endorses a mild headache but thinks it is secondary to not having his morning coffee. He did take his home medications prior to coming into the ED including his baby aspirin. He does not use nicotine products or drink alcohol regularly, he drinks 3 beers a couple of days a week but not daily. He does not use oxygen at baseline. He wishes to be full code. Admission Exam (Per Admitting) Constitutional The patient is awake, alert and oriented 3, well developed and well nourished, normocephalic and atraumatic, lying in bed and in no acute distress. HEENT--PERRL, EOMI, mucous membranes and oropharynx mildly dry Neck--supple. No JVD. No bruits. Thyroid normal, trachea midline, no adenopathy. Heart--normal S1 and S2. No murmurs, rubs or gallops. Lungs--clear bilaterally, no respiratory distress, no accessory muscle use. Abdomen--normal bowel sounds and soft. Extremities--no cyanosis or clubbing. No edema. Dermatologic--normal skin turgor, normal color, no abnormal lymph nodes, no rash. Neurologic--cranial nerves II through XII grossly intact. Rheumatologic--normal range of motion. Psychiatric--normal affect. Discharge Data Consultations 12/09/24 05:37 ED Decision to Admit Stat 12/09/24 06:08 Consult Otolaryngology (Head and Neck) Routine Procedures Performed Operation Date: 12/10/24 07:15 Actual Procedures p Endoscopic Control of Epistaxis(Not Applicable) - Kt Hardwick MD Hospital Course (1) Epistaxis: (2) ABLA (acute blood loss anemia): (3) Hypotension: (4) Hemorrhagic cerebrovascular accident (CVA): Plan Patient is a 59-year-old male with past medical history of hypertension, hyperlipidemia, aortic stenosis, aortic regurgitation, BPH, CVA in 2020 on aspirin, anxiety. He presented to the ED due to a nosebleed unresolved with Afrin at home. He is being admitted after bilateral nasal packing due to anemia with a drop of hemoglobin 4 points. #Epistaxis/ABLA Nosebleed for several days s/p bilateral packing in ED Hgb dropped from 14.0-10.0 ENT consulted and attempt to control bleeding Initially had rhinorockets put in the ED Later underwent cautherization in the OR No more bleeds on re evaluation this morning Augmentin 875 Mg started in ED; continue Augmentin 875 twice daily for PPx s/p packing d/c home per ENT #Hypotension Resolved #history of CVA in 2019 Left thalamic intraparenchymal hemorrhage in 2019 requiring transfer to [facility] Patient return 5 weeks later with TIA 2/2 HTN urgency Patient was started on baby aspirin and statin at this time Chronic stable diagnoses: HTNcontinue carvedilol and amlodipine 12/10 HLDcontinue atorvastatin Anxietycontinue BuSpar VTE ppx: SCDs, bleeding risk Diet: heart healthy Dispo: MedSurg Coding Level of Care Code 16351 INP/OBS DISCH >30 MIN Diagnoses Epistaxis R04.0 ABLA (acute blood loss anemia) D62 Hypotension I95.9 Hemorrhagic cerebrovascular accident (CVA) I61.9 Time Spent (min) 35
[2024-12-10 10:37] VITALS: RESP 16; O2SAT 96
[2024-12-10 11:38] VITALS: BP 102/64; PULSE 85
[2024-12-10] MEDS ORDERED: amLODIPine BESYLATE 5 MG TAB PO SCH (21:00)
== END 2024-12-10 14:05 | disposition home or self-care (01) ==
LOC: SUATTDRO → ED 04:31 → 3W 04:31 → SUATTDRO 06:08 → 3W 08:02